=== PATIENT | female | born 1955 | race Caucasian/White ===

== ENCOUNTER 2020-09-04 09:19 | Outpatient (REF) | payer OTHER, SELFPAY ==
[2020-09-04 10:59] LABS: Anion Gap 14 (12-20); Blood Urea Nitrogen 14 mg/dL (9-16); Calcium 9.3 mg/dL (8.4-10.2); Carbon Dioxide 27 mmol/L (22-29); Chloride 103 mmol/L (96-108); Estimated Glomerular Filt Rate > 60; Glucose Random 101 mg/dL (60-115); Potassium 4.7 mmol/l (3.3-5.1); Sodium 139 mmol/L (135-145)
[2020-09-04 11:20] LABS: TSH reflex Free T4 1.27 mIU/mL (0.32-4.0)
== END 2020-09-04 09:20 | disposition home or self-care (01) ==
LOC: HO.LAB 09:19
PROVIDERS: PCP Family Medicine; Visit Provider Nurse Practitioner Family
DX: I48.0 Paroxysmal atrial fibrillation (principal)
CPT/HCPCS: 80048; 84443

== ENCOUNTER 2020-09-04 09:40 | Outpatient (REF) | payer OTHER, SELFPAY | END 2020-09-04 09:41 | disposition home or self-care (01) | LOC: HO.LAB 09:40 | PROVIDERS: Visit Provider Internal Medicine | DX: Z20.828 Contact with and (suspected) exposure to other viral communicable diseases (principal) | CPT/HCPCS: 87635 ==

== ENCOUNTER 2020-09-30 10:56 | Outpatient (REF) | payer OTHER, SELFPAY ==
--- NOTE | 2020-09-30 | MM_ITS ---
EXAMINATION: MM SCREENING DIGITAL BREAST TOMOSYNTHESIS, BILATERAL CLINICAL INFORMATION: Screening. Asymptomatic. The lifetime risk of breast cancer based on the Tyrer-Cuzick Model is 14%. COMPARISON: Mammography: 09/25/2019, 05/16/2018 TECHNIQUE: Digital breast tomosynthesis is performed in both the craniocaudal and mediolateral oblique views along with computer-aided detection (CAD). Synthesized 2D images are generated from the tomosynthesis. FINDINGS: The breasts are heterogeneously dense, which may obscure small masses (ACR BI-RADS breast composition Category c). Parenchymal pattern is similar to prior exams. No significant mass or architectural abnormality or developing density. No abnormal calcifications. The axilla and skin contours are unremarkable. MM/MM tomosynthesis screening BI IMPRESSION: There are no significant changes from prior studies. ASSESSMENT: BI-RADS 1: Negative RECOMMENDATION: Routine annual mammography screening. This patient's information was entered into a reminder system with a target due date for their next mammogram.
== END 2020-09-30 10:57 | disposition home or self-care (01) ==
LOC: HO.MAMMO 10:56
PROVIDERS: PCP Family Medicine; Visit Provider Family Medicine
DX: Z12.31 Encounter for screening mammogram for malignant neoplasm of breast (principal)
CPT/HCPCS: 77063; 77067

== ENCOUNTER → 2020-10-22 08:26 | Outpatient (BNVA) | payer OTHER, SELFPAY | PROVIDERS: PCP Family Medicine; Visit Provider Internal Medicine Endocrinology, Diabetes & Metabolism | DX: Z76.89 Persons encountering health services in other specified circumstances (principal) ==

== ENCOUNTER 2020-11-05 13:50 | Outpatient (REF) | payer OTHER, SELFPAY | END 2020-11-05 13:51 | disposition home or self-care (01) | LOC: HO.LAB 13:50 | PROVIDERS: PCP Family Medicine; Visit Provider Internal Medicine | DX: Z20.828 Contact with and (suspected) exposure to other viral communicable diseases (principal) | CPT/HCPCS: C9803; U0003 ==

== ENCOUNTER → 2020-12-01 09:36 | Outpatient (BNVA) | payer OTHER, SELFPAY | PROVIDERS: PCP Family Medicine; Visit Provider Internal Medicine | DX: I48.0 Paroxysmal atrial fibrillation (principal); R07.2 Precordial pain; R05 Cough | CPT/HCPCS: 93005; 99212 ==

== ENCOUNTER → 2020-12-31 08:31 | Outpatient (REF) | payer OTHER, SELFPAY ==
--- NOTE | ~2020-12-31 | NM_ITS ---
Lexiscan Myocardial perfusion study Indication: Chest pain, atrial fibrillation, assess for coronary disease and ischemia Technique: The patient was brought in for a Lexiscan perfusion study on 12/31/2020 and was injected 0.4 mg of Lexiscan intravenously. Within a minute of this injection 25 mCi of sestamibi was given intravenously. Images were obtained using the SPECT gamma camera interlaced with the gating device. Images were obtained in supine position. Resting perfusion study was performed on 01/01/2021. Patient was administered 25 mCi of sestamibi intravenously at rest. Images were then obtained in supine position. Total DLP 74mGy-cm. Images were processed with the software and compared side to side in short axis, horizontal long axis and vertical long axis views. Findings: Raw acquisition was reviewed. The stress perfusion study showed no significant perfusion abnormality. Both uncorrected as well as CT attenuation corrected images were reviewed. The gated study shows normal LV systolic function with calculated LVEF of 71%. LV cavity is normal in size. The gated study shows normal wall thickening and contraction of segments. Resting study shows no significant perfusion abnormality. Gating at rest reveals normal wall motion with ejection fraction at 64%. The findings are consistent with no reversible or fixed perfusion abnormality. NM/NM cardiolite stress test Impression: 1. Myocardial perfusion imaging study shows normal myocardial perfusion. No evidence of any ischemia or infarction. 2. Gated LVEF is 71% during stress and 64% during rest. 3. Transient ischemic dilatation not present. EKG component of the test reported separately.
--- NOTE | 2020-12-31 08:37 | CA_ITS ---
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 Normal LV systolic function 2. Severely dilated left atrium 3. Mild mitral regurgitation 4. Normal RV systolic pressure 5. No pericardial effusion Findings Left Ventricle Normal left ventricular size, thickness, and systolic function. The visually estimated ejection fraction is between 60-65%. Diastolic function is indeterminate on the basis of available data. Normal left ventricular filling pressures. E/E prime ratio is <8, consistent with normal filling pressures. Right Ventricle Mildly increased right ventricular cavity size. There is normal right ventricular systolic function. Atria The left atrium is severely dilated. Interatrial shunt cannot be excluded. The right atrium is mildly dilated. Aortic Valve The aortic valve structure and function is likely normal. There is no aortic valve stenosis. There is no aortic valve regurgitation. Mitral Valve There is mild anterior and posterior mitral leaflet thickening. There is mild mitral valve regurgitation. There is no mitral valve stenosis. Pulmonic Valve The pulmonic valve was not well visualized. Tricuspid Valve Likely normal tricuspid valve structure and function. There is mild tricuspid valve regurgitation. The right ventricular systolic pressure is normal. The right ventricular systolic pressure is 28 mmHg. There is no evidence of pulmonary hypertension. Great Vessels All visible segments of the aorta are normal in size. The pulmonary artery was not well visualized. Venous The inferior vena cava is mildly dilated and collapses greater than 50% with inspiration. Pericardium/Pleural There is no evidence of pericardial effusion. Prior Study Comparison Changes noted compared to prior study dated: 01/22/2020. Patient noted to be in atrial fibrillation on this study. RV systolic Pressuremeasured on this study within normal limits. Measurements 2D Linear Measurements IVSd: 1.07 0.6-0.9/0.6-1.0 cm LVIDd: 4.17 3.9-5.3/4.2-5.9 cm LVIDd Index: 2.41 2.4-3.2/2.2-3.1 cm/m2 LVIDs: 3.10 2.0-3.6 cm LVPWd: 1.10 0.7-1.1 cm Ao Root: 3.10 2.1-3.5 cm LA Diam: 5.00 2.7-3.8/3.0-4.0 cm LAIDs Index: 2.89 1.5-2.3 cm/m2 LV Mass: 189.62 67-162/88-224 g LV Mass Index: 109.61 43-95/49-115 g/m2 LVOT Diam: 2.00 3.0+(-)1.3 cm 2D Systolic Function EF 4C: 66.40 >55% EF 2C: 61.70 >55% EF BiP: 62.60 >55% Mitral Valve MV Pk E: 0.98 MV Decel Time: 187.00 E'Lateral: 16.10 E'Medial: 9.48 E/E' Med: 10.30 E/E' Lat: 6.10 PHT: 55.00 MVA PHT: 4.00 Decel [place]: 5.22 Aortic Valve AoV Pk Misbah: 1.35 AoV Mn Misbah: 0.93 AoV VTI: 0.32 AoV Pk Grad: 7.00 Aov Mn Grad: 4.00 FANNY Cont.VTI: 1.78 LVOT LVOT Pk Misbah: 0.92 LVOT Mn [place]: 0.62 LVOT VTI: 0.18 LVOT Pk Grad: 3.00 LVOT Mn Grad: 2.00 LVOT Diam: 2.00 LVOT Area: 3.14 Diastolic Function MV Pk E: 0.98 E'Medial: 9.48 E/E' Med: 10.30 E' Laterial: 16.10 E/E' Lat: 6.10 Tricuspid Valve TR Pk Misbah: 2.50 TR Pk Grad: 25.00 RA Press: 3.00 RVSP: 28.00 Great Vessels Aorta Ao Root-2D: 3.10 2.0-3.7 cm Ao Asc: 3.30 2.1-3.4 cm Pulmonary Valve PV Pk Misbah: 0.96 Peak PV Grad: 4.00 Updated in Other Vendor System with Status of Final Nirav Herring MD electronically signed on 01/01/2021 11:14:38 AM with status of Final
--- NOTE | 2020-12-31 09:30 | CA_ITS ---
Acquisition Time: 2020-12-31 10:31:07 Total Exercise Time: 00:02:00 Test Indications: Chest Pain Medications: ELIQUIS DILTIAZEM LEVOTHYROXINE METOPROLOL Protocol: LEXISCAN Max HR: 126 BPM 80% of Pred: 156 BPM Max BP: 130/090 mmHG Max Work Load: 1.0 METS Pharmacological stress test with Lexiscan injection, while sitting and kicking her legs, without anginal symptoms, with isolated PVC, with normotensive response to injection, with nondiagnostic EKG for ischemia. In recovery she had afib RVR and was treated with Aminophylline 75mg IVP to reverse Lexsican with improvement in heart rate. Nuclear images pending. Test reviewed with Dr Herring. Referred By: Manoj Henderson Overread By: CARLOS REDDY
== END ==
LOC: HO.CARD 08:31
PROVIDERS: Visit Provider Internal Medicine
DX: R07.2 Precordial pain (principal); I48.0 Paroxysmal atrial fibrillation
CPT/HCPCS: 78452; 93016; 93017; 93018; 93306; A9500; J0280; J2785

== ENCOUNTER → 2021-01-14 09:01 | Outpatient (BNVA) | payer OTHER, SELFPAY | PROVIDERS: PCP Family Medicine; Visit Provider Internal Medicine | DX: R07.2 Precordial pain (principal); I48.0 Paroxysmal atrial fibrillation; Z79.899 Other long term (current) drug therapy; Z87.891 Personal history of nicotine dependence | CPT/HCPCS: 99212 ==

== ENCOUNTER → 2021-01-23 09:46 | Outpatient (REF) | payer OTHER, SELFPAY ==
--- NOTE | 2021-01-23 10:35 | ECG_ITS ---
Hook-up date: 2021-01-23 10:00:00 Duration: 47:59:00 Test Indications: PAF Medications: 296799 QRS complexes 1561 Ventricular ectopics which represent 1 % of total QRS comp. * Supraventricular ectopics which represent % of total QRS comp. * Paced QRS complexs which represent % of total QRS comp. VENTRICULAR ECTOPY 1502 Isolated 6 Bigeminal Cycles 28 Couplets 1 Runs 3 Beats in Runs 3 Beats LONGEST at 180 BPM at 09:34:57 2021-01-24 3 Beats FASTEST at 180 BPM at 09:34:57 2021-01-24 SUPRAVENTRICULAR ECTOPY * Isolated * Couplets * Runs * Beats in Runs * Beats LONGEST at * BPM at :: -- * Beats FASTEST at * BPM at :: -- HEART RATES 58 MIN at 06:56:39 2021-01-24 98 AVG 169 MAX at 08:35:19 2021-01-24 LONGEST RR 1.5680 secs at 19:22:48 2021-01-23 S-T LEVELS Channel 1 - 128 mm at 10:00:00 2021-01-23 - 128 mm at 10:00:00 2021-01-23 Channel 2 - 128 mm at 10:00:00 2021-01-23 - 128 mm at 10:00:00 2021-01-23 Channel 3 - 128 mm at 02:91:91 -- - 128 mm at 02:91:91 Basic rhythm Atrial fibrillation No long pause or profound bradycardia Frequent Atrial fibrillation with rapid ventricular response , 41% of time HR > 100 bpm Frequent Premature ventricular complexes No diary submitted Referred By: Manoj Henderson Overread By: JOANNE GARCIA MD
== END ==
LOC: HO.CARD 09:46
PROVIDERS: PCP Family Medicine; Visit Provider Internal Medicine
DX: I48.0 Paroxysmal atrial fibrillation (principal)
CPT/HCPCS: 93226

== ENCOUNTER → 2021-02-04 09:07 | Outpatient (BNVA) | payer OTHER, SELFPAY | PROVIDERS: PCP Family Medicine; Visit Provider Internal Medicine | DX: I48.91 Unspecified atrial fibrillation (principal); I48.0 Paroxysmal atrial fibrillation; R07.2 Precordial pain | CPT/HCPCS: 99212 ==

== ENCOUNTER 2021-02-19 06:33 | Day surgery (SDC) | payer OTHER, SELFPAY ==
[2021-02-16 08:37] VITALS: BMI 27.8
--- NOTE | 2021-02-18 12:06 | P.CONAN_ITS ---
Documented by User: Fang Garcia 02/18/21 12:13 HPI - Anesthesia Eval Consult details Narrative: 65yo F for Cardioversion [facility] Active Problems Active Problems: All Active Problems (Updated 02/04/21 @ 09:20 by Manoj Henderson MD) Atrial fibrillation with rapid ventricular response (Acute) Cough (Acute) PAF (paroxysmal atrial fibrillation) (Acute) Precordial chest pain (Acute) Graves disease (Acute) Hypothyroidism (Acute) Paroxysmal A-fib (Acute) Past Medical History Medical History (Updated 02/19/21 @ 07:50 by Sridevi Blackwood) Graves disease Hypothyroidism PAF (paroxysmal atrial fibrillation) Paroxysmal A-fib Precordial chest pain Family History Family History Father CVD (cardiovascular disease) Diabetes Mother HTN (hypertension) Surgical History Surgical History (Updated 02/19/21 @ 07:38 by Sridevi Blackwood) History of surgery on arm Hx of appendectomy Social History Social History Smoking Status: Former smoker Packs Per Day: 0.24 Cigarettes Per Day: 4.8 Smoked in Last 30 Days: No Smoking Quit Date: 18 years ago Second Hand Smoke Exposure: No Use of substances other than those prescribed or required for medical reasons: Yes Substance Use Frequency: Occasionally Advance Directives: No Advance Directives Information Provided: Yes Meds Allergies Allergy/AdvReac Type Severity Reaction Status Date / Time Penicillins Allergy Severe Anaphylaxis Verified 02/04/21 09:08 Exam Exam Date and Time: February 18, 2021 1206 Height,Weight and Vital Signs: Height 5 ft 3 in Weight 71.3 kg Narrative Narrative: Echo 12/2020 Conclusions: - 1. Normal LV systolic function 2. Severely dilated left atrium 3. Mild mitral regurgitation 4. Normal RV systolic pressure 5. No pericardial effusion Stress 12/2020 NM cardiolite stress test Impression: 1. Myocardial perfusion imaging study shows normal myocardial perfusion. No evidence of any ischemia or infarction. 2. Gated LVEF is 71% during stress and 64% during rest. 3. Transient ischemic dilatation not present. Nondiagnostic EKG for ischemia. In recovery she had afib RVR and was treated with Aminophylline 75mg IVP to reverse Lexsican with improvement in heart rate. 2 day Holter Basic rhythm Atrial fibrillation No long pause or profound bradycardia Frequent Atrial fibrillation with rapid ventricular response , 41% of time HR > 100 bpm Frequent Premature ventricular complexes Assessment and Plan Assessment Anesthesia Assessment: Chart Reviewed Documented by User: Sridevi Blackwood 02/19/21 08:22 [facility] Past Medical History Medical History (Updated 02/19/21 @ 07:50 by Sridevi Blackwood) Graves disease Hypothyroidism PAF (paroxysmal atrial fibrillation) Paroxysmal A-fib Precordial chest pain Family History Family History Father CVD (cardiovascular disease) Diabetes Mother HTN (hypertension) Family history of problems with anesthesia: No Surgical History Surgical History (Updated 02/19/21 @ 07:38 by Sridevi Blackwood) History of surgery on arm Hx of appendectomy History of Problems with Anesthesia: No Social History Social History Smoking Status: Former smoker Packs Per Day: 0.24 Cigarettes Per Day: 4.8 Smoked in Last 30 Days: No Smoking Quit Date: 18 years ago Second Hand Smoke Exposure: No Use of substances other than those prescribed or required for medical reasons: Yes Substance Use Frequency: Occasionally Advance Directives: No Advance Directives Information Provided: Yes Meds Allergies Allergy/AdvReac Type Severity Reaction Status Date / Time Penicillins Allergy Severe Anaphylaxis Verified 02/04/21 09:08 Exam Height,Weight and Vital Signs: Vital Signs Temp Pulse Resp BP Pulse Ox 97.1 F 89 20 103/68 98 02/19/21 07:07 02/19/21 07:07 02/19/21 07:07 02/19/21 07:07 02/19/21 07:07 Airway Mallampati Class: II TM Dist: >3cm Neck ROM: Full Loose/Missing/Broken Teeth: Yes Heart: Irreguarly irregular Lungs: CTAB Assessment and Plan Assessment Anesthesia Assessment: Anesthesia Plan Discussed and Chart Reviewed Final Anesthetic Review NPO: Yes ASA Class: III Final Preanesthetic Review: No Changes in Pt Med Stat, Meds/Allgs Chart Reviewed, Consent Obtained/Reviewed and Anes Risks/Benef Reviewed Patient Risk: Intermediate Procedure Risk: Intermediate Assessment/Block/Sedation in SS: Assess/Block/Sedation-SS Anesthetic Plan Anesthetic Plan: GA Disposition: Standard PACU
[2021-02-19] VITALS (7 sets, daily range): BP systolic 103–122; BP diastolic 46–87; PULSE 58–89; RESP 12–20; TEMP 36.2; O2SAT 96–99; BMI 27.6
--- NOTE | 2021-02-19 | ECG_ITS ---
Test Reason : S/P CARDIOVERSION Blood Pressure : / mmHG Vent. Rate : 061 BPM Atrial Rate : 061 BPM P-R Int : 148 ms QRS Dur : 082 ms QT Int : 452 ms P-R-T Axes : 039 050 255 degrees QTc Int : 455 ms Normal sinus rhythm with sinus arrhythmia Nonspecific ST and T wave abnormality Abnormal ECG No previous ECGs available Referred By: Rylan Duran Electronically Signed By:RYLAN DURAN
[2021-02-19] MEDS: Lactated Ringers 1,000 ML 50 ML IV (07:21)
--- NOTE | 2021-02-19 08:01 | MHC.SHP ---
Pre-Procedural Eval Section B Chief Complaint: A-fib Allergies: Allergies Allergy/AdvReac Type Severity Reaction Status Date / Time Penicillins Allergy Severe Anaphylaxis Verified 02/04/21 09:08 Plan I have reviewed the history and physical and performed a pertinent physical examination on my patient. No changes have occurred unless specified.
[2021-02-19] MEDS: Flecainide Acetate 50 MG TABLET 100 MG PO (08:24)
--- NOTE | 2021-02-19 11:49 | HO.CARDIVERS ---
Cardioversion Procedure Note Cardioversion Date of Procedure: 02/19/2021 Ordering Provider: Dr. Henderson Performing Provider: Dr. Henderson Indication for Procedure: Atrial fibrillation with rapid rate Pre-Op Diagnosis: Atrial fibrillation Post-Op Diagnosis: Sinus rhythm Performed with Transesophageal Echo: No History: Symptomatic atrial fibrillation for cardioversion. Consent: Informed consent obtained. Procedure: After informed consent was obtained, patient was taken to the PACU. The patient was then positioned appropriately. The cardioversion pads were placed in anteroposterior position. Once under anesthesia, 120 joules of synchronized shock was administered. The rhythm converted from atrial fibrillation to sinus rhythm. Patient remained in sinus rhythm after the end of procedure. Complications: None Impression: Successful cardioversion from atrial fibrillation to sinus rhythm Recommendations: Start flecainide 100 mg b.i.d.. Stop metoprolol. Continue diltiazem. Continue anticoagulation. We will arrange followup.
== END 2021-02-19 09:14 | disposition home or self-care (01) ==
PROVIDERS: PCP Family Medicine; Visit Provider Internal Medicine
PROC: 5A2204Z Restoration of Cardiac Rhythm, Single (ICD-10-PCS; principal; 2021-02-19 08:00)
DX: I48.0 Paroxysmal atrial fibrillation (principal); Z79.01 Long term (current) use of anticoagulants; E05.00 Thyrotoxicosis with diffuse goiter without thyrotoxic crisis or storm; Z79.899 Other long term (current) drug therapy; Z88.0 Allergy status to penicillin; Z87.891 Personal history of nicotine dependence
CPT/HCPCS: 92960; 93005

== ENCOUNTER → 2021-04-01 12:57 | Outpatient (REF) | payer OTHER, SELFPAY ==
--- NOTE | 2021-04-01 13:10 | ECG_ITS ---
Hook-up date: 2021-04-01 13:18:00 Duration: 24:54:00 Test Indications: PAF Medications: [id number] QRS complexes 38 Ventricular ectopics which represent <1 % of total QRS comp. * Supraventricular ectopics which represent % of total QRS comp. * Paced QRS complexs which represent % of total QRS comp. VENTRICULAR ECTOPY 35 Isolated 0 Bigeminal Cycles 0 Couplets 1 Runs 3 Beats in Runs 3 Beats LONGEST at 144 BPM at 11:19:19 2021-04-02 3 Beats FASTEST at 144 BPM at 11:19:19 2021-04-02 SUPRAVENTRICULAR ECTOPY * Isolated * Couplets * Runs * Beats in Runs * Beats LONGEST at * BPM at :: -- * Beats FASTEST at * BPM at :: -- HEART RATES 52 MIN at 21:33:03 2021-04-01 93 AVG 167 MAX at 15:31:31 2021-04-01 LONGEST RR 1.9200 secs at 21:32:58 2021-04-01 S-T LEVELS Channel 1 - 128 mm at 13:18:00 2021-04-01 - 128 mm at 13:18:00 2021-04-01 Channel 2 - 128 mm at 13:18:00 2021-04-01 - 128 mm at 13:18:00 2021-04-01 Channel 3 - 128 mm at 03:23:71 -- - 128 mm at 03:23:71 Underlying rhythm is atrial fibrilation; some areas could be flutter; Average ventricular rate 93/min; range 52-167/min; About 49% of the time, ventricular rate >100/min; Rare PVCs; No events in patient diary. Referred By: Rylan Duran Overread By: RYLAN DURAN
== END ==
LOC: HO.CARD 12:57
PROVIDERS: Visit Provider Internal Medicine
DX: I48.0 Paroxysmal atrial fibrillation (principal)
CPT/HCPCS: 93225; 93226

== ENCOUNTER → 2021-05-07 09:42 | Outpatient (BNVA) | payer MEDICAID, SELFPAY | PROVIDERS: PCP Family Medicine; Visit Provider Internal Medicine | DX: I48.0 Paroxysmal atrial fibrillation (principal); Z51.81 Encounter for therapeutic drug level monitoring; Z79.899 Other long term (current) drug therapy | CPT/HCPCS: 93005; 99212 ==

== ENCOUNTER 2021-05-15 12:34 | Day surgery (SDC) | payer MEDICAID, SELFPAY ==
--- NOTE | 2021-05-14 08:27 | P.CONAN_ITS ---
Documented by User: Fang Radha 05/14/21 08:29 HPI - Anesthesia Eval Consult details Narrative: 65yo F for Cardioversion Eliquis Last cardioversion 02/19/21 with TIVA PMFSH Active Problems Active Problems: All Active Problems (Updated 05/07/21 @ 10:23 by Manoj Henderson MD) Encounter for monitoring anti-arrhythmic therapy (Acute) Atrial fibrillation with rapid ventricular response (Acute) Cough (Acute) PAF (paroxysmal atrial fibrillation) (Acute) Precordial chest pain (Acute) Graves disease (Acute) Hypothyroidism (Acute) Paroxysmal A-fib (Acute) Past Medical History Medical History (Updated 05/15/21 @ 14:01 by Sridevi Blackwood) Graves disease History of cardioversion Hypothyroidism PAF (paroxysmal atrial fibrillation) Paroxysmal A-fib Precordial chest pain Family History Family History Father CVD (cardiovascular disease) Diabetes Mother HTN (hypertension) Family history of problems with anesthesia: No Surgical History Surgical History History of surgery on arm Hx of appendectomy History of Problems with Anesthesia: No Social History Social History (Updated 05/07/21 @ 10:04 by KARIS Carroll) Patient Tobacco Use Status: Former Tobacco user Quit Date: 2002 Tobacco use type: Cigarette Cigarette Packs Per Day: 0.24 Cigarettes Per Day: 4.8 Years Smoked: 30 Second Hand Smoke Exposure: No Use of substances other than those prescribed or required for medical reasons: Yes Substance Use Frequency: Occasionally Are you DNR?: No Advance Directives: No Advance Directives Information Provided: No Meds Allergies Allergy/AdvReac Type Severity Reaction Status Date / Time Penicillins Allergy Severe Anaphylaxis Verified 05/15/21 12:45 Exam Exam Date and Time: May 14, 2021 0827 Narrative Narrative: EKG 05/07/21 atrial flutter with variable block at 89/Min with T inversions in inferior and anterolateral leads Echo 12/2020 Conclusions: - 1. Normal LV systolic function 2. Severely dilated left atrium 3. Mild mitral regurgitation 4. Normal RV systolic pressure 5. No pericardial effusion Stress 12/2020 NM cardiolite stress test Impression: 1. Myocardial perfusion imaging study shows normal myocardial perfusion. No evidence of any ischemia or infarction. 2. Gated LVEF is 71% during stress and 64% during rest. 3. Transient ischemic dilatation not present. Nondiagnostic EKG for ischemia. In recovery she had afib RVR and was treated with Aminophylline 75mg IVP to reverse Lexsican with improvement in heart rate. 2 day Holter Basic rhythm Atrial fibrillation No long pause or profound bradycardia Frequent Atrial fibrillation with rapid ventricular response , 41% of time HR > 100 bpm Frequent Premature ventricular complexes Assessment and Plan Assessment Anesthesia Assessment: Chart Reviewed Documented by User: Sridevi Blackwood 05/15/21 14:01 [facility] Past Medical History Medical History (Updated 05/15/21 @ 14:01 by Sridevi Blackwood) Graves disease History of cardioversion Hypothyroidism PAF (paroxysmal atrial fibrillation) Paroxysmal A-fib Precordial chest pain Family History Family History Father CVD (cardiovascular disease) Diabetes Mother HTN (hypertension) Surgical History Surgical History History of surgery on arm Hx of appendectomy Social History Social History (Updated 05/07/21 @ 10:04 by KARIS Carroll) Patient Tobacco Use Status: Former Tobacco user Quit Date: 2002 Tobacco use type: Cigarette Cigarette Packs Per Day: 0.24 Cigarettes Per Day: 4.8 Years Smoked: 30 Second Hand Smoke Exposure: No Use of substances other than those prescribed or required for medical reasons: Yes Substance Use Frequency: Occasionally Are you DNR?: No Advance Directives: No Advance Directives Information Provided: No Meds Allergies Allergy/AdvReac Type Severity Reaction Status Date / Time Penicillins Allergy Severe Anaphylaxis Verified 05/15/21 12:45 Exam Height,Weight and Vital Signs: Vital Signs Temp Pulse Resp BP Pulse Ox 05/15/21 12:53 97.4 F 77 16 144/93 H 97 Airway Mallampati Class: II TM Dist: >3cm Neck ROM: Full Loose/Missing/Broken Teeth: Yes Heart: Irregularly irregular Lungs: CTAB Assessment and Plan Assessment Anesthesia Assessment: Anesthesia Plan Discussed and Chart Reviewed Final Anesthetic Review NPO: Yes ASA Class: III Final Preanesthetic Review: No Changes in Pt Med Stat, Meds/Allgs Chart Reviewed, Consent Obtained/Reviewed and Anes Risks/Benef Reviewed Patient Risk: Intermediate Procedure Risk: Intermediate Assessment/Block/Sedation in SS: Assess/Block/Sedation-SS Anesthetic Plan Anesthetic Plan: GA Disposition: Standard PACU
--- NOTE | 2021-05-15 | ECG_ITS ---
Test Reason : POST CARDIOVERSION Blood Pressure : / mmHG Vent. Rate : 071 BPM Atrial Rate : 071 BPM P-R Int : 184 ms QRS Dur : 092 ms QT Int : 416 ms P-R-T Axes : 043 059 -43 degrees QTc Int : 452 ms Normal sinus rhythm T wave abnormality, consider anterolateral ischemia Abnormal ECG When compared with ECG of 19-FEB-2021 08:31, No significant change was found Referred By: Rylan Duran Electronically Signed By:RYLAN DURAN
[2021-05-15 12:50] VITALS: BMI 26.5
[2021-05-15 12:53] VITALS: BP 144/93; PULSE 77; RESP 16; TEMP 36.3; O2SAT 97
--- NOTE | 2021-05-15 13:01 | PC.NURSE ---
One gold wedding band removed by patient and placed in labeled blue bin. Bin kept with the rest of patient belongings in bag
[2021-05-15] MEDS: Lactated Ringers 1,000 ML 50 ML IVCONT (13:13)
--- NOTE | 2021-05-15 13:41 | MHC.SHP ---
Pre-Procedural Eval Section A Date of Service: 05/15/21 Section B Chief Complaint: a-fib Allergies: Allergies Allergy/AdvReac Type Severity Reaction Status Date / Time Penicillins Allergy Severe Anaphylaxis Verified 05/15/21 12:45 Plan I have reviewed the history and physical and performed a pertinent physical examination on my patient. No changes have occurred unless specified.
[2021-05-15 13:52] VITALS: BP 128/79; PULSE 70; RESP 16; TEMP 36.5; O2SAT 97
[2021-05-15 13:57] VITALS: BP 118/61; PULSE 73; RESP 16; O2SAT 96
[2021-05-15 14:02] VITALS: BP 118/73; PULSE 68; RESP 18; O2SAT 98
--- NOTE | 2021-05-15 14:06 | P.PNCAR_ITS ---
Cardioversion Procedure Note Cardioversion Date of Procedure: 05/15/2021 Ordering Provider: Dr. Henderson Performing Provider: Dr. Henderson Indication for Procedure: Atrial fibrillation Pre-Op Diagnosis: Atrial fibrillation Post-Op Diagnosis: Sinus rhythm Performed with Transesophageal Echo: No History: Symptomatic atrial fibrillation for cardioversion. Consent: Informed consent obtained. Procedure: After informed consent was obtained, patient was taken to the PACU. The patient was then positioned appropriately. The cardioversion pads were placed in anteroposterior position. Once under anesthesia, 120 joules of synchronized shock was administered. The rhythm converted from atrial fibrilla tion to sinus rhythm. Patient remained in sinus rhythm after the end of procedure. Complications: None Impression: Successful cardioversion from atrial fibrillation to sinus rhythm. Recommendations: Continue flecainide. Referred for ablation.
[2021-05-15 14:07] VITALS: BP 125/87; PULSE 71; RESP 18; O2SAT 97
[2021-05-15 14:29] VITALS: TEMP 36.6
== END 2021-05-15 14:50 | disposition home or self-care (01) ==
PROVIDERS: PCP Family Medicine; Visit Provider Internal Medicine
PROC: 5A2204Z Restoration of Cardiac Rhythm, Single (ICD-10-PCS; principal; 2021-05-15 14:00)
DX: I48.0 Paroxysmal atrial fibrillation (principal); Z79.01 Long term (current) use of anticoagulants; E05.00 Thyrotoxicosis with diffuse goiter without thyrotoxic crisis or storm; Z79.02 Long term (current) use of antithrombotics/antiplatelets; Z79.899 Other long term (current) drug therapy; Z87.891 Personal history of nicotine dependence
CPT/HCPCS: 92960; 93005

== ENCOUNTER → 2021-07-06 14:39 | Outpatient (BNVA) | payer MEDICAID, SELFPAY | PROVIDERS: PCP Family Medicine; Referring Provider Family Medicine; Visit Provider Internal Medicine | DX: I48.0 Paroxysmal atrial fibrillation (principal); Z51.81 Encounter for therapeutic drug level monitoring; Z79.899 Other long term (current) drug therapy | CPT/HCPCS: 93005; 99212 ==

== ENCOUNTER → 2021-07-20 15:52 | Outpatient (REF) | payer MEDICARE, MEDICAID, SELFPAY | LOC: HO.SL 15:52 | PROVIDERS: Visit Provider Internal Medicine | DX: G47.33 Obstructive sleep apnea (adult) (pediatric) (principal); I48.0 Paroxysmal atrial fibrillation | CPT/HCPCS: 95806 ==

== ENCOUNTER 2021-10-06 12:45 | Outpatient (REF) | payer MEDICARE, SELFPAY ==
[2021-10-06 14:45] LABS: Anion Gap 13 (12-20); Blood Urea Nitrogen 14 mg/dL (9-16); Calcium 10.3 mg/dL (8.4-10.2); Carbon Dioxide 26 mmol/L (22-29); Chloride 103 mmol/L (96-108); Estimated Glomerular Filt Rate > 60; Glucose Random 100 mg/dL (60-115); Potassium 4.7 mmol/L (3.3-5.1); Sodium 137 mmol/L (135-145)
[2021-10-06 15:11] LABS: Free T4 (Free Thyroxine) 1.18 ng/dL (0.71-1.85); Thyroid Stimulating Hormone 0.74 uIU/mL (0.32-4.0)
[2021-10-06 16:02] LABS: Digoxin < 0.3 ng/mL (0.8-2.0)
== END 2021-10-06 12:46 | disposition home or self-care (01) ==
LOC: HO.LAB 12:45
PROVIDERS: Internal Medicine Endocrinology, Diabetes & Metabolism; Absent Provider Internal Medicine; PCP Family Medicine; Referring Provider Family Medicine; Visit Provider Internal Medicine
DX: G47.33 Obstructive sleep apnea (adult) (pediatric) (principal); E05.00 Thyrotoxicosis with diffuse goiter without thyrotoxic crisis or storm; E89.0 Postprocedural hypothyroidism; I48.0 Paroxysmal atrial fibrillation; Z79.899 Other long term (current) drug therapy
CPT/HCPCS: 36415; 80048; 80162; 84439; 84443; 99212

== ENCOUNTER 2021-10-14 09:56 | Outpatient (REF) | payer MEDICARE, MEDICAID, SELFPAY ==
--- NOTE | ~2021-10-14 | MM_ITS ---
EXAMINATION: MM SCREENING DIGITAL BREAST TOMOSYNTHESIS, BILATERAL CLINICAL INFORMATION: Screening. Asymptomatic. The lifetime risk of breast cancer based on the Tyrer-Cuzick Model is 11.4%. COMPARISON: Mammography: September 30, 2020 and studies dating back to April 25, 2017 TECHNIQUE: Digital breast tomosynthesis is performed in both the craniocaudal and mediolateral oblique views along with computer-aided detection (CAD). Synthesized 2D images are generated from the tomosynthesis. FINDINGS: The breasts are heterogeneously dense, which may obscure small masses (ACR BI-RADS breast composition Category c). There are no significant masses, abnormal calcifications, or other abnormalities. MM/MM tomosynthesis screening BI IMPRESSION: There are no significant changes from prior study. ASSESSMENT: BI-RADS 1: Negative RECOMMENDATION: Routine annual mammography screening. This patient's information was entered into a reminder system with a target due date for their next mammogram.
== END 2021-10-14 09:57 | disposition home or self-care (01) ==
LOC: HO.MAMMO 09:56
PROVIDERS: Visit Provider Family Medicine
DX: Z12.31 Encounter for screening mammogram for malignant neoplasm of breast (principal)
CPT/HCPCS: 77063; 77067

== ENCOUNTER → 2021-11-16 10:33 | Outpatient (BNVA) | payer MEDICARE, MEDICAID, SELFPAY | PROVIDERS: PCP Family Medicine; Visit Provider Internal Medicine | DX: G47.33 Obstructive sleep apnea (adult) (pediatric) (principal) | CPT/HCPCS: 99212 ==

== ENCOUNTER → 2021-12-01 09:35 | Outpatient (BNVA) | payer MEDICARE, MEDICAID, SELFPAY | PROVIDERS: PCP Family Medicine; Referring Provider Family Medicine; Visit Provider Internal Medicine | DX: I48.0 Paroxysmal atrial fibrillation (principal); R94.31 Abnormal electrocardiogram [ECG] [EKG]; G47.33 Obstructive sleep apnea (adult) (pediatric); Z51.81 Encounter for therapeutic drug level monitoring; Z79.899 Other long term (current) drug therapy | CPT/HCPCS: 93005; 99212 ==

== ENCOUNTER → 2022-01-04 12:43 | Outpatient (REF) | payer MEDICARE, MEDICAID, SELFPAY ==
--- NOTE | 2022-01-04 12:49 | HM_ITS ---
Conclusion: 1. Patient was monitor for total period of one day and 17 hours 2. Baseline rhythm is normal sinus rhythm with average heart rate of 75 beats per minute 3. No sustained atrial fibrillation noted 4. No significant pauses or bradycardia noted 5. Twenty-seven short runs of supraventricular arrhythmias, longest lasting 14 beats. 6. Total of 2623 PVCs accounting for 1.4% of total beats accounting for occasional PVCs 7. Total of 5622 PACs accounting for 3.01% of total beats accounting for frequent PACs 8. No patient reported events MTDD
== END ==
LOC: HO.CARD 12:43
PROVIDERS: PCP Family Medicine; Visit Provider Internal Medicine
DX: I48.0 Paroxysmal atrial fibrillation (principal)
CPT/HCPCS: 93242

== ENCOUNTER 2022-01-27 10:37 | Outpatient (REF) | payer MEDICARE, MEDICAID, SELFPAY ==
[2022-01-27 12:03] LABS: Albumin Level 4.1 g/dL (3.5-5.0); Calcium 10.2 mg/dL (8.4-10.2)
[2022-01-28 16:26] LABS: Calcium (PTHI) 9.8 mg/dL (8.6-10.4); PTHI 73 pg/mL (16-77)
== END 2022-01-27 10:38 | disposition home or self-care (01) ==
LOC: HO.LAB 10:37
PROVIDERS: PCP Family Medicine; Visit Provider Internal Medicine Endocrinology, Diabetes & Metabolism
DX: E89.0 Postprocedural hypothyroidism (principal)
CPT/HCPCS: 36415; 82040; 82310; 83970

== ENCOUNTER → 2022-02-02 08:53 | Outpatient (BNVA) | payer MEDICARE, MEDICAID, SELFPAY | PROVIDERS: PCP Family Medicine; Visit Provider Internal Medicine Endocrinology, Diabetes & Metabolism | DX: E89.0 Postprocedural hypothyroidism (principal) | CPT/HCPCS: 99212 ==

== ENCOUNTER → 2022-03-09 08:13 | Outpatient (BNVA) | payer MEDICARE, MEDICAID, SELFPAY | PROVIDERS: PCP Family Medicine; Referring Provider Family Medicine; Visit Provider Internal Medicine | DX: I48.0 Paroxysmal atrial fibrillation (principal); G47.33 Obstructive sleep apnea (adult) (pediatric); R94.31 Abnormal electrocardiogram [ECG] [EKG] | CPT/HCPCS: 99212 ==

== ENCOUNTER → 2022-04-19 08:56 | Outpatient (REF) | payer MEDICARE, MEDICAID, SELFPAY ==
--- NOTE | ~2022-04-19 | NM_ITS ---
Lexiscan Myocardial perfusion study Indication: Atrial fibrillation, chest pain, assess for coronary disease and ischemia Technique: The patient was brought in for a Lexiscan perfusion study on 04/19/2022 and was injected 0.4 mg of Lexiscan intravenously. Within a minute of this injection 25 mCi of sestamibi was given intravenously. Images were obtained using the SPECT gamma camera interlaced with the gating device. Images were obtained in supine position. Resting perfusion study was performed on 04/22/2022. Patient was administered 25 mCi of sestamibi intravenously at rest. Images were then obtained in supine position. Total DLP 90mGy-cm. Images were processed with the software and compared side to side in short axis, horizontal long axis and vertical long axis views. Findings: Raw acquisition was reviewed. The stress perfusion study showed minimally reduced tracer uptake in the distal part of anterior wall. No significant changes with CT attenuation correction. The gated study shows normal LV systolic function with calculated LVEF of 61%. LV cavity is normal in size. The gated study shows normal wall thickening and contraction of segments. Resting study shows no significant perfusion abnormality. Gating at rest reveals normal wall motion with normal EF on visual evaluation. However, gated LVEF calculated at 34% which seems erroneous. The findings are consistent with mild reversible distal anterior defect with normal contractility. Likely artifactual. NV/NV cardiolite stress test Impression: 1. Myocardial perfusion imaging study shows no definitive evidence of any ischemia or infarction. 2. Gated LVEF is 61% during stress; visually appears normal during rest. 3. Transient ischemic dilatation not present. EKG component of the test reported separately.
--- NOTE | 2022-04-19 09:01 | CA_ITS ---
Acquisition Time: 2022-04-19 09:17:56 Total Exercise Time: 00:03:43 Test Indications: Abnormal ECG Medications: ELIQUIS DILTIAZEM SYNTHROID Protocol: STORM Max HR: 127 BPM 81% of Pred: 155 BPM Max BP: 174/086 mmHG Max Work Load: 5.4 METS Exercise stress test with exercise 3 min 43 sec of Storm protocol, with report of dizziness, with frequent isolated PACs and short atrial runs, isolated PVCs and few ventricular cuplets, with brief slowing of heart rate at peak exercise which coincided with her dizziness ( artifact present, unable to assess for P waves) with normotensive response to exercise, with nondiagnostic EKG for ischemia due to baseline abnormality and suboptimal heart rate. She was assisted to recliner and allowed to rest for over 10 min. EKGs reviewed with Dr Henderson. Testing changed to pharmacological stress test with Lexiscan injection, while sitting and kicking, with isolated PACs and PVCs, with normotensive response to injection, with nondiagnostic EKG for ischemia. In recovery she was treated with Aminophylline 75mg IVP to reverse Lexiscan. Nuclear images pending. Test reviewed with Dr Henderson. Referred By: Manoj Henderson Overread By: CARLOS REDDY
== END ==
LOC: HO.CARD 08:56
PROVIDERS: PCP Family Medicine; Visit Provider Internal Medicine
DX: R07.2 Precordial pain (principal)
CPT/HCPCS: 78452; 93017; A9500; J0280; J2785

== ENCOUNTER → 2022-07-13 13:24 | Outpatient (BNVA) | payer MEDICARE, MEDICAID, SELFPAY | PROVIDERS: PCP Family Medicine; Referring Provider Family Medicine; Visit Provider Internal Medicine | DX: I48.0 Paroxysmal atrial fibrillation (principal); G47.33 Obstructive sleep apnea (adult) (pediatric); R94.31 Abnormal electrocardiogram [ECG] [EKG]; Z79.01 Long term (current) use of anticoagulants; Z79.899 Other long term (current) drug therapy | CPT/HCPCS: 99212 ==

== ENCOUNTER 2022-10-18 09:41 | Outpatient (REF) | payer MEDICARE, MEDICAID, OTHER, SELFPAY ==
--- NOTE | ~2022-10-18 | MM_ITS ---
EXAMINATION: MM SCREENING DIGITAL BREAST TOMOSYNTHESIS, BILATERAL CLINICAL INFORMATION: Screening. Asymptomatic. The lifetime risk of breast cancer based on the Tyrer-Cuzick Model is 12%. COMPARISON: Mammography: 10/14/2021, 09/30/2020, 09/25/2019 TECHNIQUE: Digital breast tomosynthesis is performed in both the craniocaudal and mediolateral oblique views along with computer-aided detection (CAD). Synthesized 2D images are generated from the tomosynthesis. FINDINGS: The breasts are heterogeneously dense, which may obscure small masses (ACR BI-RADS breast composition Category c). There are no significant masses, abnormal calcifications, or other abnormalities. Parenchymal pattern is similar to prior studies. There is no developing density or architectural abnormality. The axilla and skin contours are unremarkable. No significant changes. MM/MM tomosynthesis screening BI IMPRESSION: No mammographic evidence of malignancy. ASSESSMENT: BI-RADS 1: Negative RECOMMENDATION: Routine annual mammography screening. This patient's information was entered into a reminder system with a target due date for their next mammogram.
== END 2022-10-18 09:42 | disposition home or self-care (01) ==
LOC: HO.MAMMO 09:41
PROVIDERS: PCP Family Medicine; Visit Provider Family Medicine
DX: Z12.31 Encounter for screening mammogram for malignant neoplasm of breast (principal)
CPT/HCPCS: 77063; 77067

== ENCOUNTER → 2023-01-19 14:56 | Outpatient (BNVA) | payer MEDICARE, MEDICAID, OTHER, SELFPAY | PROVIDERS: PCP Family Medicine; Referring Provider Family Medicine; Visit Provider Internal Medicine | DX: I48.0 Paroxysmal atrial fibrillation (principal); R94.31 Abnormal electrocardiogram [ECG] [EKG]; G47.33 Obstructive sleep apnea (adult) (pediatric) | CPT/HCPCS: 93005; 99212 ==

== ENCOUNTER 2023-02-08 09:11 | Outpatient (REF) | payer MEDICARE, MEDICAID, SELFPAY ==
[2023-02-08 10:53] LABS: Free T4 (Free Thyroxine) 1.21 ng/dL (0.71-1.85)
[2023-02-08 11:10] LABS: Thyroid Stimulating Hormone 0.08 uIU/mL (0.32-4.0)
== END 2023-02-08 09:12 | disposition home or self-care (01) ==
LOC: HO.LAB 09:11
PROVIDERS: PCP Family Medicine; Visit Provider Internal Medicine Endocrinology, Diabetes & Metabolism
DX: E89.0 Postprocedural hypothyroidism (principal)
CPT/HCPCS: 36415; 84439; 84443

== ENCOUNTER → 2023-02-10 09:20 | Outpatient (BNVA) | payer MEDICARE, MEDICAID, SELFPAY | PROVIDERS: PCP Family Medicine; Visit Provider Internal Medicine Endocrinology, Diabetes & Metabolism | DX: E89.0 Postprocedural hypothyroidism (principal) | CPT/HCPCS: 99212 ==

== ENCOUNTER 2023-06-08 15:26 | Outpatient (REF) | payer MEDICARE, MEDICAID, SELFPAY ==
[2023-06-08 18:12] LABS: Free T4 (Free Thyroxine) 0.93 ng/dL (0.71-1.85); Thyroid Stimulating Hormone 2.42 uIU/mL (0.32-4.0)
== END 2023-06-08 15:27 | disposition home or self-care (01) ==
LOC: HO.LAB 15:26
PROVIDERS: PCP Family Medicine; Visit Provider Internal Medicine Endocrinology, Diabetes & Metabolism
DX: E89.0 Postprocedural hypothyroidism (principal)
CPT/HCPCS: 36415; 84439; 84443

== ENCOUNTER 2023-06-09 15:27 | Outpatient (REF) | payer MEDICARE, OTHER, SELFPAY ==
--- NOTE | ~2023-06-09 | XR_ITS ---
EXAMINATION: XR SACRUM AND COCCYX CLINICAL INFORMATION: Abnormal findings on diagnostic imaging of other parts of musculoskeletal system. 3-month follow up incidental lucency at sacrum. COMPARISON: None available. TECHNIQUE: 3 views of the sacrum and coccyx. FINDINGS: There is marked grade 1 anterolisthesis of L5 upon S1. A large amount of stool overlies the sacrum. No definite bony destructive lesions are seen. Marked degenerative changes are seen at the pubic symphysis. XR/XR sacrum coccyx min 2V IMPRESSION: No definite bony destructive lesions are seen. There is marked grade 1 anterolisthesis of L5 upon S1. Marked degenerative changes at the pubic symphysis.
== END 2023-06-09 15:28 | disposition home or self-care (01) ==
LOC: HO.XRAY 15:27
PROVIDERS: PCP Family Medicine; Visit Provider Family Medicine
DX: R93.7 Abnormal findings on diagnostic imaging of other parts of musculoskeletal system (principal); E89.0 Postprocedural hypothyroidism; Z79.899 Other long term (current) drug therapy
CPT/HCPCS: 72220; 99212

== ENCOUNTER 2023-06-09 16:05 | Outpatient (AMB) | payer MEDICARE, MEDICAID, SELFPAY ==
--- NOTE | 2023-06-09 16:12 | MHC.OFFVIS ---
Intake Vital Signs 06/09/23 16:13 Height 5 ft 3 in Weight 146 lb 6.191 oz BMI 25.9 BP 112/82 Pulse 95 Intake Visit Reasons: f/u postablative hypothyroidism Intake Note: Patient present for postablative hypothyroidism follow up. Rn Document Improvement Required: No Accompanied by: Self / Same As Patient Allergies Penicillins Allergy (Severe, Verified 06/09/23 16:16) Anaphylaxis Medication List - Last Reconciled 06/09/23 by Hemanth Dean MD apixaban (Eliquis) 5 mg PO BID diltiazem HCl 180 mg PO DAILY 90 days Synthroid (levothyroxine) 88 mcg PO DAILY NS HPI HPI Comments History of Present Illness Details 68 yo female today for fup visit, , for post ablative hypothyroidism . She is feeling well. Has no complaints. She has past medical history of Graves' disease who underwent radioactive iodine ablation and has resulted in hypothyroidism She is currently on synthroid 88 mg. 100% compliance with LT 4, good method of administration. Feeling some fatigue since decrease the Synthroid 88 Denies cold or heat intolerance, weight loss or gain, Denies diarrhea, constipation, insomnia, fatigue, dry skin, Occasional dysphagia, Denies dyspnea, dysphonia, tremors, palpitations, irritability, anxiety. Family History: Aunt had goiter. Laboratory Tests 01/01/20 09/04/20 Unknown 09:32 TSH 1.27 Free T4 0.94 TSH 3rd Generation 1.02 [facility] Medical History (Updated 04/26/23 @ 15:53 by Preston Jean) Graves disease History of cardioversion Hypothyroidism PAF (paroxysmal atrial fibrillation) Paroxysmal A-fib Precordial chest pain Surgical History History of surgery on arm Hx of appendectomy S/P ablation of atrial fibrillation Family History Father CVD (cardiovascular disease) Diabetes Mother HTN (hypertension) Social History Alcohol intake: current Alcohol intake frequency: 0-2 drinks per day Alcohol type: wine Patient Tobacco Use Status: Former Tobacco user Quit Date: 2002 Years Smoked: 30 +/- e-Cigarette/Vaping Use: Never Used Second Hand Smoke Exposure: No Substance Use Type: Marijuana service: No 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al status: employed Physical Exam Vital Signs: Last Vital Signs Pulse 95 06/09/23 16:13 BP 112/82 06/09/23 16:13 BMI result Body Mass Index 25.9 Const Other: Thyroid gland is decreased size weighs about 5 g .No thyroid nodules palpated. Reflexes 2+ DTR. Assessment & Plan Assessment & Plan (1) Hypothyroidism: Code(s): E03.9 - Hypothyroidism, unspecified Qualifiers: Hypothyroidism type: postablative Qualified Code(s): E89.0 - Postprocedural hypothyroidism Plan: This is a 68-year-old white female with a history of post-ablated hypothyroidism be treated with 88 mcg Synthroid. She appears to be clinically and biochemically euthyroid Plan is to alternate the 88 mcg with 100 mcg of Synthroid. Recheck TSH and free T4 in 6 weeks time and adjust Synthroid accordingly Orders: Orders Free T4 (Free Thyroxine) 6 Weeks E03.9 - Hypothyroidism, unspecified Thyroid Stimulating Hormone 6 Weeks E03.9 - Hypothyroidism, unspecified Coding Level of Care Code Est Pt Level 3 (73291) Diagnoses Hypothyroidism E89.0 Hypothyroidism type: postablative
[2023-06-09 16:13] VITALS: BP 112/82; PULSE 95; BMI 25.9
== END 2023-06-09 16:43 | disposition home or self-care (01) ==
PROVIDERS: PCP Family Medicine; Referring Provider Family Medicine; Visit Provider Internal Medicine Endocrinology, Diabetes & Metabolism
DX: E89.0 Postprocedural hypothyroidism (principal)
CPT/HCPCS: 99213

== ENCOUNTER 2023-08-26 16:12 | Outpatient (AMB) | payer MEDICARE, SELFPAY ==
[2023-08-26 16:14] VITALS: BP 110/74; PULSE 83; RESP 13; TEMP 36.4; O2SAT 98; BMI 25.7
--- NOTE | 2023-08-26 16:14 | MHC.PC.OV ---
Vital Signs 08/26/23 16:14 Height 5 ft 3 in Weight 145 lb 6 oz BMI 25.7 BP 110/74 Blood Pressure Location Lt brachial Position Sitting Respiration 13 Pulse 83 Pulse Source Pulse Oximeter Temp 97.6 F Temp Source Temporal Artery Scan Pulse Oximetry (%) 98 Oxygen Delivery Method Room Air Intake Visit Reasons: shoulder pain Intake Note: Patient states that she was reaching for something on the mantel and sliped on a rock and landed sraight on her left shoulder in 04/2023 and today is the first time she is getting seen for it. Reference Investigator Required: No Accompanied by: Self / Same As Patient Allergies Penicillins Allergy (Severe, Verified 08/26/23 16:35) Anaphylaxis Medication List - Last Reconciled 08/26/23 by Francois Vieira CNP apixaban (Eliquis) 5 mg PO BID diltiazem HCl 180 mg PO DAILY 90 days Synthroid (levothyroxine) 88 mcg PO DAILY NS Tobacco use date assessed: 04/26/23 Fall risk assessment: 1 Fall in past year Last assessed Fall Risk: 08/26/23 Dental Screening Dental Screen Date: 08/26/23 Did you have a dental visit in the last 12 months?: Yes Did you have a dental problem in the last 6 months where you did not have access to dental care?: No Was dental information given to patient?: Patient has dentist HPI HPI Comments History of Present Illness Details 68-year-old female presents with complaints of intermittent to her left upper arm. She states that the pain started in April 2023, after she slipped and fell on the hard wood floor of her home, landing on her left shoulder. She notes that the pain has lessened but has not completely subsided. Worse with certain movements and range of motion. She has been taking tylenol as needed. [facility] Medical History History of cardioversion PAF (paroxysmal atrial fibrillation) Precordial chest pain Graves disease Hypothyroidism Paroxysmal A-fib Surgical History S/P ablation of atrial fibrillation History of surgery on arm Hx of appendectomy Family History Father CVD (cardiovascular disease) Diabetes Mother HTN (hypertension) Social History Housing: House Alcohol intake: current Alcohol intake frequency: 0-2 drinks per day Alcohol type: wine Patient Tobacco Use Status: Former Tobacco user Quit Date: 2002 Years Smoked: 30 +/- e-Cigarette/Vaping Use: Never Used Second Hand Smoke Exposure: No Substance Use Type: Marijuana service: No 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al status: employed 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) Cognitive needs: No Hearing needs: No Vision needs: No Review of Systems Const Details: Const Denies chills, Denies fatigue, Denies fever(s), Denies headache(s) and Denies weakness ENT Denies dizziness and Denies headache(s) Card Denies chest pain, Denies lightheadedness, Denies dyspnea and Denies other (Palpitations) Resp Denies cough, Denies dyspnea, Denies wheezing and Denies other ( shortness of breath) GI Denies abdominal pain, Denies melena, Denies hematochezia, Denies change in bowel habits, Denies dyspepsia and Denies nausea Denies hematuria and Denies dysuria Musc Denies abnormal gait, Denies myalgias, Denies arthralgias, Denies numbness and Denies tingling Skin/Breast Denies rash, Denies unusual bruising and Denies wounds Neuro Denies abnormal gait, Denies dizziness, Denies headache(s), Denies memory loss, Denies numbness, Denies Sensory deficit (Neuro), Denies tingling and Denies weakness Psych Denies anxiety, Denies depression, Denies memory loss Endo Denies cold intolerance, Denies fatigue, Denies heat intolerance, Denies polydipsia and Denies polyuria Aller/Immun Denies wheezing Physical exam (Primary Care) Vital Signs: Last Vital Signs Temp 97.6 F 08/26/23 16:14 Pulse 83 08/26/23 16:14 Resp 13 08/26/23 16:14 BP 110/74 08/26/23 16:14 Pulse Ox 98 08/26/23 16:14 Oxygen Delivery Method Room Air 08/26/23 16:14 BMI result Body Mass Index 25.7 Tobacco/Smoking Status: Tobacco use Status Tobacco use date assessed 04/26/23 08/26/23 16:22 Patient Tobacco Use Status Former Tobacco user 08/26/23 16:22 Tobacco use type 01/07/22 15:46 e-Cigarette/Vaping Use Never Used 08/26/23 16:22 Const Other: General: no acute distress and well developed Nutritional Appearance: well nourished Orientation/consciousness: patient oriented x3 [facility] Head: Yes normocephalic and Yes atraumatic Eyes General: appearance normal, both eyes and all related structures Pupils: Equal, round and reactive pupils present EOM: EOMs intact bilaterally Resp Effort & Inspection: normal respiratory effort Auscultation: clear to auscultation bilaterally Cardio Rate: regular rate Rhythm: regular rhythm Heart sounds: S1 normal heart sound present, S2 normal heart sound present, no gallops, no murmurs and no rubs GI Palpation (GI): No Abdominal aortic bruit present, Soft to palpation, nontender, No hepatosplenomegaly present and No Rebound tenderness present Auscultation: normal bowel sounds General: Yes no CVA tenderness Back/Spine/Pelvis Back: no CVA tenderness Cervical Spine: cervical ROM normal and No Cervical spine tenderness Thoracic/Lumbar Spine: thoraco-lumbar ROM normal, No pain with thoraco-lumbar ROM, No thoracic spinal tenderness and No lumbar spinal tenderness Extrem General: Yes normal to inspection, No edema and No calf tenderness Tenderness to palpation of the lateral left upper arm proximal to the shoulder. No erythema, edema, or overt trauma Skin General: warm and dry. Normal skin color. Normal skin turgor Neuro General: patient oriented x3, gait normal and no focal neuro deficit Cranial nerves: Yes Equal, round and reactive pupils present Cognition (Neuro): normal cognition Gait exam (Neuro): Normal gait present Sensory Exam: No Sensory deficit (Neuro) Psych Appearance: grossly normal Affect: normal affect Attitude: cooperative Thought process: Normal thought process present Assessment and Plan Assessment & Plan (1) Left upper arm pain: Code(s): M79.622 - Pain in left upper arm Plan: Present with intermittent left upper arm pain for the past 4 months Tenderness to palpation of the lateral left upper arm proximal to the shoulder. No erythema, edema, or overt trauma Normal range of motion Likely tendinitis Prednisone ordered. Take as prescribed Warm/cool compresses encouraged Follow-up with worsening or new symptoms Verbalized understanding and agreed with treatment plan. Medications: New prednisone 20 mg PO DAILY 5 tabs 0RF 5 days Coding Level of Care Code Est Pt Level 3 (91301) Diagnoses Left upper arm pain M79.622
== END 2023-08-26 16:46 | disposition home or self-care (01) ==
PROVIDERS: PCP Family Medicine; Visit Provider Nurse Practitioner Family
DX: M79.622 Pain in left upper arm (principal)
CPT/HCPCS: 99213

== ENCOUNTER 2023-09-12 09:15 | Outpatient (REF) | payer MEDICARE, SELFPAY ==
[2023-09-12 11:38] LABS: Free T4 (Free Thyroxine) 0.89 ng/dL (0.71-1.85); Thyroid Stimulating Hormone 2.15 uIU/mL (0.32-4.0)
== END 2023-09-12 09:16 | disposition home or self-care (01) ==
LOC: HO.LAB 09:15
PROVIDERS: Absent Provider Internal Medicine Endocrinology, Diabetes & Metabolism; PCP Family Medicine; Visit Provider Nurse Practitioner Family
DX: E03.9 Hypothyroidism, unspecified (principal); I48.0 Paroxysmal atrial fibrillation; R94.31 Abnormal electrocardiogram [ECG] [EKG]; Z98.890 Other specified postprocedural states; Z86.79 Personal history of other diseases of the circulatory system
CPT/HCPCS: 36415; 84439; 84443; 99212

== ENCOUNTER 2023-09-12 09:15 | Outpatient (AMB) | payer MEDICARE, SELFPAY ==
[2023-09-12 09:30] VITALS: BP 114/84; PULSE 85; BMI 26.0
--- NOTE | 2023-09-12 09:30 | A.OFFVIS_ITS ---
Intake Vital Signs 09/12/23 09:30 Height 5 ft 3 in Weight 146 lb 13.246 oz BMI 26.0 BP 114/84 Blood Pressure Location Lt brachial Position Sitting Pulse 85 Pulse Source Pulse Oximeter Intake Visit Reasons: follow up Allergies Penicillins Allergy (Severe, Verified 09/12/23 09:33) Anaphylaxis Medication List - Last Reconciled 09/12/23 by Nerissa Williamson [employer] apixaban (Eliquis) 5 mg PO BID diltiazem HCl 180 mg PO DAILY 90 days levothyroxine (Synthroid) 100 mcg PO DAILY Synthroid (levothyroxine) 88 mcg PO DAILY NS HPI follow up HPI Details Bridget is a 68-year-old female with past medical history of obstructive sleep apnea, thyroid disease, paroxysmal then persistent atrial fibrillation, failed cardioversion and ultimately undergoing successful atrial fibrillation ablation who presents for follow-up. Today she reports that over the summer her thyroid medication was adjusted by her knowledge management advisor. Since then she has had intermittent episodes brief lightheadedness following her morning Eliquis and diltiazem. 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 Now that the season is over she has not notice this symptom in the last few weeks. She has good activity tolerance and walks 1.5 miles daily. She is active with house and [employer] work. No chest discomfort at rest or with activity. No shortness of breath, heart palpitations, presyncope, syncope, PND, orthopnea or edema. Takes meds as directed. No bleeding issues reported. [facility] Medical History History of cardioversion PAF (paroxysmal atrial fibrillation) Precordial chest pain Graves disease Hypothyroidism Paroxysmal A-fib Surgical History (Updated 09/12/23 @ 11:28 by Nerissa Williamson, JESSICA-C) S/P ablation of atrial fibrillation History of surgery on arm Hx of appendectomy Family History Father CVD (cardiovascular disease) Diabetes Mother HTN (hypertension) Social History Housing: House Alcohol intake: current Alcohol intake frequency: 0-2 drinks per day Alcohol type: wine Patient Tobacco Use Status: Former Tobacco user Quit Date: 2002 Years Smoked: 30 +/- e-Cigarette/Vaping Use: Never Used Second Hand Smoke Exposure: No Substance Use Type: Marijuana service: No 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al status: employed 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) Cognitive needs: No Hearing needs: No Vision needs: No Review of Systems Const All systems reviewed & are unremarkable except as noted in HPI and below ENT Reports dizziness Card Denies chest pain, Denies chest pain at rest, Denies chest pain with activity, Denies rapid heart rate, Denies pedal edema, Denies edema, Denies leg edema, Denies lightheadedness, Denies palpitations, Denies dyspnea, Denies dyspnea on exertion and Denies orthopnea Resp Denies cough, Denies dyspnea and Denies dyspnea on exertion GI Denies hematochezia and Denies change in stool character Musc Denies abnormal gait, Denies limited range of motion, Denies muscle cramps, Denies muscle weakness, Denies numbness, Denies radiating pain into limb, Denies stiffness and Denies tingling Neuro Denies abnormal gait, Reports dizziness, Denies numbness and Denies tingling Endo Denies palpitations Physical Exam Vital Signs: Last Vital Signs Pulse 85 09/12/23 09:30 BP 114/84 09/12/23 09:30 BMI result Body Mass Index 26.0 Const General: cooperative, healthy appearing, comfortable and no acute distress Orientation/consciousness: patient oriented x3 Neck Neck: Yes normal visual inspection Resp Effort & Inspection: normal respiratory effort Auscultation: clear to auscultation bilaterally, no crackles, no rales, no rhonchi and no wheezes Cardio Jugular venous distension: no JVD Rate: regular rate Rhythm: regular rhythm Heart sounds: S1 normal heart sound present, S2 normal heart sound present, no murmurs and no rubs Neuro General: patient oriented x3 Extrem General: Yes normal to inspection Psych Appearance: grossly normal Mental Status: mental status grossly normal Speech and movement: Normal speech and movement present Assessment & Plan Assessment & Plan (1) PAF (paroxysmal atrial fibrillation): Code(s): I48.0 - Paroxysmal atrial fibrillation Plan: History of paroxysmal atrial fibrillation which then became persistent. She was on anti arrhythmics and failed cardioversion. She ultimately underwent a successful atrial fibrillation ablation on 10/27/2021. She has not had documented recurrent atrial fibrillation since that time. She denies any palpitations like AFib since that time. Her pulse is very regular on examination today with no concern for AFib. Will continue on current diltiazem dose. She is on Eliquis for anticoagulation. No bleeding issues reported. Will update CBC and CMP. Cardiology follow-up in 6 months, sooner if needed. (2) S/P ablation of atrial fibrillation: Comment: October 27, 2021 Code(s): Z98.890 - Other specified postprocedural states; Z86.79 - Personal history of other diseases of the circulatory system (3) FANY (obstructive sleep apnea): Code(s): G47.33 - Obstructive sleep apnea (adult) (pediatric) Plan: Mild obstructive sleep apnea. She is not interested in CPAP mask. (4) Hypothyroidism: Code(s): E03.9 - Hypothyroidism, unspecified Qualifiers: Hypothyroidism type: postablative Qualified Code(s): E89.0 - Postprocedural hypothyroidism Plan: Follows with Dr. Dean. Since the change in her thyroid medication last summer she has had episodes of intermittent brief lightheadedness. Last episode was a few weeks ago. She will have labs checked today as ordered by him. (5) Abnormal EKG: Code(s): R94.31 - Abnormal electrocardiogram [ECG] [EKG] Plan: Her EKG has inferior and anterior lateral T-wave inversions. Last EKG 01/19/2023. No significant change from prior EKGs. She has no anginal sounding symptoms. She has had 2 stress tests in the past and neither shows any significant perfusion abnormality. If she has report of any chest discomfort or new shortness of breath and plan to get a CTA of the coronary arteries. Signs and symptoms of angina reviewed with her. Orders: Orders Complete Blood Count Auto Diff Today I48.0 - Paroxysmal atrial fibrillation Comprehensive Met. Panel Today I48.0 - Paroxysmal atrial fibrillation Coding Level of Care Code Est Pt Level 4 (77202) Diagnoses PAF (paroxysmal atrial fibrillation) I48.0 S/P ablation of atrial fibrillation Z98.890; Z86.79 FANY (obstructive sleep apnea) G47.33 Postablative hypothyroidism E89.0 Hypothyroidism type: postablative Abnormal EKG R94.31 Time Spent (min) 28
== END 2023-09-12 09:55 | disposition home or self-care (01) ==
PROVIDERS: PCP Family Medicine; Visit Provider Nurse Practitioner Family
DX: I48.0 Paroxysmal atrial fibrillation (principal); Z98.890 Other specified postprocedural states; Z86.79 Personal history of other diseases of the circulatory system; G47.33 Obstructive sleep apnea (adult) (pediatric); E89.0 Postprocedural hypothyroidism; R94.31 Abnormal electrocardiogram [ECG] [EKG]
CPT/HCPCS: 99214

== ENCOUNTER 2023-09-13 12:39 | Outpatient (REF) | payer MEDICARE, SELFPAY ==
[2023-09-13 13:30] LABS: MANUAL DIFF FLAG NO
[2023-09-13 13:55] LABS: Basophils Percent Auto 0.3 % (0-2); Eosinophils Absolute Auto 0.2 X10*3/uL (0.0-0.4); Eosinophils Percent Auto 1.7 % (0-4); Hematocrit 40.9 % (37.0-47.0); Hemoglobin 13.7 g/dl (12.0-16.0); Imm Gran Abs Auto 0.06 X10*3/uL (0.00-0.03); Imm Gran Pct Auto 0.5 % (0.0-0.4); Lymphocytes Absolute Auto 1.9 X10*3/uL (1.2-4.9); Lymphocytes Percent Auto 15.4 % (20-40); Mean Corpuscular HGB Conc 33.5 g/dl (31.0-35.0); Mean Corpuscular Hemoglobin 32.4 pg (27.0-33.0); Mean Corpuscular Volume 96.7 fL (80.0-98.0); Mean Platelet Volume 9.8 fL (9.4-12.3); Monocytes Absolute Auto 0.6 X10*3/uL (0.1-1.2); Neutrophils Absolute Auto 9.6 x10*3/uL (2.0-8.3); Neutrophils Percent Auto 77.1 % (45-73); Platelet Count 288 X10*3/uL (160-400); Red Blood Count 4.23 X10*6/uL (4.20-5.50); Red Cell Distribution Width 13.1 % (11.0-16.0); White Blood Count 12.5 X10*3/uL (4.8-10.8)
[2023-09-13 14:22] LABS: Alanine Aminotransferase 16 U/L (0-31); Albumin Level 4.2 g/dL (3.5-5.0); Alkaline Phosphatase 90 U/L (39-117); Anion Gap 13 (12-20); Aspartate Amino Transferase 18 U/L (5-31); Bilirubin Total 0.6 mg/dL (0.0-1.0); Blood Urea Nitrogen 16 mg/dL (9-16); Carbon Dioxide 26 mmol/L (22-29); Chloride 106 mmol/L (96-108); Estimated Glomerular Filt Rate > 60; Glucose Random 93 mg/dL (60-115); Potassium 4.2 mmol/L (3.3-5.1); Sodium 141 mmol/L (135-145); Total Protein 7.1 g/dL (6.5-8.0)
== END 2023-09-13 12:40 | disposition home or self-care (01) ==
LOC: HO.LAB 12:39
PROVIDERS: PCP Family Medicine; Visit Provider Nurse Practitioner Family
DX: I48.0 Paroxysmal atrial fibrillation (principal)
CPT/HCPCS: 36415; 80053; 85025

== ENCOUNTER 2023-11-01 09:25 | Outpatient (REF) | payer MEDICARE, SELFPAY | END 2023-11-01 09:26 | disposition home or self-care (01) | LOC: HO.MAMMO 09:25 | PROVIDERS: PCP Family Medicine; Visit Provider Family Medicine | DX: Z12.31 Encounter for screening mammogram for malignant neoplasm of breast (principal) | CPT/HCPCS: 77063; 77067 ==

== ENCOUNTER → 2023-11-01 09:30 | Outpatient (BNV) | payer MEDICARE, SELFPAY | PROVIDERS: PCP Family Medicine; Visit Provider Radiology Diagnostic Radiology | DX: Z12.31 Encounter for screening mammogram for malignant neoplasm of breast (principal) | CPT/HCPCS: 77063; 77067 ==

== ENCOUNTER 2024-03-06 09:51 | Outpatient (REF) | payer MEDICARE, SELFPAY ==
[2024-03-06 11:31] LABS: Free T4 (Free Thyroxine) 0.96 ng/dL (0.71-1.85)
== END 2024-03-06 09:52 | disposition home or self-care (01) ==
LOC: HO.LAB 09:51
PROVIDERS: PCP Family Medicine; Visit Provider Internal Medicine Endocrinology, Diabetes & Metabolism
DX: E89.0 Postprocedural hypothyroidism (principal)
CPT/HCPCS: 36415; 84439; 84443

== ENCOUNTER 2024-03-13 08:55 | Outpatient (AMB) | payer MEDICARE, SELFPAY ==
--- NOTE | 2024-03-13 08:57 | A.OFFVIS_ITS ---
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 Required: No Allergies Penicillins Allergy (Severe, Verified 03/13/24 11:40) Anaphylaxis Medication List - Last Reconciled 03/13/24 by Nerissa Williamson NP-Lm apixaban (Eliquis) 5 mg PO BID diltiazem HCl CD 180 mg PO DAILY 90 days Synthroid (levothyroxine) 88 mcg PO .q0d NS Synthroid (levothyroxine) 100 mcg PO .qod NS HPI HPI 6 mth f/up: Details: Bridget is a 68-year-old female with past medical history of obstructive sleep apnea, thyroid disease, paroxysmal then persistent atrial fibrillation, failed cardioversion and ultimately undergoing successful atrial fibrillation ablation who presents for follow-up. Today she reports she has been doing well overall. Her only complaint is of forgetfulness. She is having some difficulty remembering names. She will [facility] discuss this with her PCP. No chest discomfort at rest or with activity. No heart palpitations, lightheadedness, presyncope, syncope, falls. No shortness of breath, PND, orthopnea or edema. Taking meds as directed. No bleeding issues reported. 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 [facility] Medical History History of cardioversion PAF (paroxysmal atrial fibrillation) Precordial chest pain Graves disease Hypothyroidism Paroxysmal A-fib Surgical History S/P ablation of atrial fibrillation History of surgery on arm Hx of appendectomy Family History Father CVD (cardiovascular disease) Diabetes Mother HTN (hypertension) Social History Housing: House Alcohol intake: current Alcohol intake frequency: 0-2 drinks per day Alcohol type: wine Patient Tobacco Use Status: Former Tobacco user Quit Date: 2002 Years Smoked: 30 +/- e-Cigarette/Vaping Use: Never Used Second Hand Smoke Exposure: No Substance Use Type: Marijuana service: No 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al status: employed 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) Cognitive needs: No Hearing needs: No Vision needs: No Review of Systems Const Details: forgetfulness All systems reviewed & are unremarkable except as noted in HPI and below ENT Denies dizziness Card Denies chest pain, Denies chest pain at rest, Denies chest pain with activity, Denies rapid heart rate, Denies pedal edema, Denies edema, Denies leg edema, Denies lightheadedness, Denies palpitations, Denies dyspnea, Denies dyspnea on exertion and Denies orthopnea Resp Denies cough, Denies dyspnea and Denies dyspnea on exertion GI Denies hematochezia and Denies change in stool character Musc Denies abnormal gait, Denies limited range of motion, Denies muscle cramps, Denies muscle weakness, Denies numbness, Denies radiating pain into limb, Denies stiffness and Denies tingling Neuro Denies abnormal gait, Denies dizziness, Denies numbness and Denies tingling Endo Denies palpitations Physical Exam Vital Signs: Last Vital Signs Pulse 89 03/13/24 08:58 BP 124/82 03/13/24 08:58 BMI result Body Mass Index 26.6 Const General: cooperative, healthy appearing, comfortable and no acute distress Orientation/consciousness: patient oriented x3 Neck Neck: Yes normal visual inspection and Yes no JVD Resp Effort & Inspection: normal respiratory effort Auscultation: clear to auscultation bilaterally, no crackles, no rales, no rhonchi and no wheezes Cardio Jugular venous distension: no JVD Rate: regular rate Rhythm: regular rhythm Heart sounds: S1 normal heart sound present, S2 normal heart sound present, no murmurs and no rubs Neuro General: patient oriented x3 Extrem General: Yes normal to inspection and No no pedal edema Psych Appearance: grossly normal Mental Status: mental status grossly normal Speech and movement: Normal speech and movement present Office Procedures EKG Details: Today, read by me, sinus rhythm, short OR interval, T-wave abnormality, same as prior EKG, rate 89, QTC 425 milliseconds [id number], Complete Assessment & Plan Assessment & Plan (1) PAF (paroxysmal atrial fibrillation): Code(s): I48.0 - Paroxysmal atrial fibrillation Category: Medical Plan: History of paroxysmal atrial fibrillation which then became persistent. She was on anti arrhythmics and failed cardioversion. She ultimately underwent a successful atrial fibrillation ablation on 10/27/2021. She has not had documented recurrent atrial fibrillation since that time. She denies any palpitations like AFib since that time. EKG done today showing sinus rhythm, T- wave inversions inferior and V3 through V6 which is unchanged from prior EKGs, rate 89. Blood pressure normal range at 124/70. Will continue on current diltiazem dose. She is on Eliquis for anticoagulation. No bleeding issues reported. Labs done 09/13/2023 showed creatinine 0.62, hematocrit 40.9. Labs done 03/06/2024 showed TSH 1.10. Cardiology follow-up in 1 year, sooner if needed. (2) S/P ablation of atrial fibrillation: Comment: October 27, 2021 Code(s): Z98.890 - Other specified postprocedural states; Z86.79 - Personal history of other diseases of the circulatory system Category: Surgical Plan: As above (3) FANY (obstructive sleep apnea): Code(s): G47.33 - Obstructive sleep apnea (adult) (pediatric) Category: Medical Plan: Mild obstructive sleep apnea. She is not interested in CPAP mask. (4) Hypothyroidism: Code(s): E03.9 - Hypothyroidism, unspecified Category: Medical Qualifiers: Hypothyroidism type: postablative Qualified Code(s): E89.0 - Postprocedural hypothyroidism Plan: Follows with Dr. Dean. (5) Abnormal EKG: Code(s): R94.31 - Abnormal electrocardiogram [ECG] [EKG] Category: Medical Plan: Her EKG has inferior and anterior lateral T-wave inversions. EKGs reviewed back to 2020 and unchanged. EKG today shows no significant changes. She has no anginal sounding symptoms. She has had 2 stress tests in the past , last was 04/19/2022, and neither shows any significant perfusion abnormality. If she has report of any chest discomfort or new shortness of breath and plan to get a CTA of the coronary arteries. Signs and symptoms of angina reviewed with her. Plan Time spent on chart review, documentation, interview and assessment Coding Level of Care Code Est Pt Level 4 (18717) Diagnoses PAF (paroxysmal atrial fibrillation) I48.0 S/P ablation of atrial fibrillation Z98.890; Z86.79 FANY (obstructive sleep apnea) G47.33 Postablative hypothyroidism E89.0 Hypothyroidism type: postablative Abnormal EKG R94.31 CPT Codes EKG - CPT: 13261-[id number], Complete ([id number]) Time Spent (min) 28
[2024-03-13 08:58] VITALS: BP 124/82; PULSE 89; BMI 26.6
== END 2024-03-13 09:23 | disposition home or self-care (01) ==
PROVIDERS: PCP Family Medicine; Visit Provider Nurse Practitioner Family
DX: I48.0 Paroxysmal atrial fibrillation (principal); Z98.890 Other specified postprocedural states; Z86.79 Personal history of other diseases of the circulatory system; G47.33 Obstructive sleep apnea (adult) (pediatric); E89.0 Postprocedural hypothyroidism; R94.31 Abnormal electrocardiogram [ECG] [EKG]
CPT/HCPCS: 93010; 99214

== ENCOUNTER → 2024-03-13 08:55 | Outpatient (BNVA) | payer MEDICARE, SELFPAY | PROVIDERS: PCP Family Medicine; Visit Provider Nurse Practitioner Family | DX: E89.0 Postprocedural hypothyroidism (principal); Z79.899 Other long term (current) drug therapy; I48.0 Paroxysmal atrial fibrillation; G47.33 Obstructive sleep apnea (adult) (pediatric); R94.31 Abnormal electrocardiogram [ECG] [EKG] | CPT/HCPCS: 93005; 99212 ==

== ENCOUNTER 2024-03-13 11:35 | Outpatient (AMB) | payer MEDICARE, SELFPAY ==
--- NOTE | 2024-03-13 11:35 | A.OFFVIS_ITS ---
Vital Signs 03/13/24 11:36 Height 5 ft 3 in Weight 149 lb 14.629 oz BMI 26.6 BP 124/70 Blood Pressure Location Lt brachial Position Sitting Pulse 79 Pulse Source Pulse Oximeter Intake Visit Reasons: f/u postablative hypothyroidism-lvm Intake Note: Patient present today for Postablative Hypothyroidism follow up visit. 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 She is feeling well. Has no complaints. She has past medical history of Graves' disease who underwent radioactive iodine ablation and has resulted in hypothyroidism She is currently on synthroid 88 mg. alt with 100 mcg 100% compliance with LT 4, good method of administration. Feeling some fatigue since decrease the Synthroid 88 Denies cold or heat intolerance, weight loss or gain, Denies diarrhea, constipation, insomnia, fatigue, dry skin, Occasional dysphagia, Denies dyspnea, dysphonia, tremors, palpitations, irritability, anxiety. Family History: Aunt had goiter. Laboratory Tests 01/01/20 09/04/20 Unknown 09:32 TSH 1.27 Free T4 0.94 TSH 3rd Generation 1.02 [facility] Medical History History of cardioversion PAF (paroxysmal atrial fibrillation) Precordial chest pain Graves disease Hypothyroidism Paroxysmal A-fib Surgical History S/P ablation of atrial fibrillation History of surgery on arm Hx of appendectomy Family History Father CVD (cardiovascular disease) Diabetes Mother HTN (hypertension) Social History Housing: House Alcohol intake: current Alcohol intake frequency: 0-2 drinks per day Alcohol type: wine Patient Tobacco Use Status: Former Tobacco user Quit Date: 2002 Years Smoked: 30 +/- e-Cigarette/Vaping Use: Never Used Second Hand Smoke Exposure: No Substance Use Type: Marijuana service: No 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al status: employed 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 Reflexes 2+ DTR. Assessment & Plan Assessment & Plan (1) Hypothyroidism: Code(s): E03.9 - Hypothyroidism, unspecified Category: Medical Qualifiers: Hypothyroidism type: postablative Qualified Code(s): E89.0 - Postprocedural hypothyroidism Plan: This is a 68-year-old white female with a history of post-ablated hypothyroidism be treated with 88 mcg Synthroid. She appears to be clinically and biochemically euthyroid Plan is to continue the current therapy Coding Level of Care Code Est Pt Level 3 (66327) Diagnoses Postablative hypothyroidism E89.0 Hypothyroidism type: postablative
[2024-03-13 11:36] VITALS: BP 124/70; PULSE 79; BMI 26.6
== END 2024-03-13 15:37 | disposition home or self-care (01) ==
PROVIDERS: PCP Family Medicine; Visit Provider Internal Medicine Endocrinology, Diabetes & Metabolism
DX: E89.0 Postprocedural hypothyroidism (principal)
CPT/HCPCS: 99213

== ENCOUNTER 2024-05-30 08:34 | Outpatient (AMB) | payer MEDICARE, SELFPAY ==
--- NOTE | 2024-05-30 08:46 | AM.OFFWIN_ITS ---
Intake Vital Signs 3 05/30/24 08:49 Height 5 ft 3 in Weight 146 lb BMI 25.9 BP 128/80 Blood Pressure Location Lt brachial Position Sitting Respiration 12 Pulse 75 Pulse Source Pulse Oximeter Temp 98.1 F Temp Source Oral Pulse Oximetry (%) 97 Oxygen Delivery Method Room Air Intake Visit Reasons: Neck Pain Intake Note: Neck pain. Fell last year and neck pain started acting up again. Patient Tobacco Use Status: Former Tobacco user Allergies Penicillins Allergy (Severe, Verified 05/30/24 09:24) Anaphylaxis Medication List - Last Reconciled 05/30/24 by Miriam Rouse, [employer]- apixaban (Eliquis) 5 mg PO BID diltiazem HCl CD 180 mg PO DAILY 90 days Synthroid (levothyroxine) 88 mcg PO .q0d NS Synthroid (levothyroxine) 100 mcg PO .qod NS Do you need a note to return to daycare/school/sports/work: No HPI HPI Comments 2 History of Present Illness0 Details Very pleasant 69-year-old female here today with complaints of left neck/upper back pain. She reports that about 1 year ago she fell backwards and injured her neck. She has not had any trauma to her neck since. Reports that she was treated with prednisone for the pain at that time with positive effect. 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 Started with left upper back pain yesterday. She did apply topical pain patches and limited the amount of physical work and lifting that she was doing which did help to alleviate the pain. When she rubs the muscles on the right upper back she feels like a popping or moving sensation. She denies any neuro deficits. Plan: Prednisone 50 mg p.o. daily. Zanaflex to be used sparingly Cont topical pain patches X-rays of the left shoulder and clavicle. Negative for acute findings; rather chronic OA changes. This note is constructed using voice recognition software. While every effort has been made to ensure accuracy in varnish cooker, still errors may have been included Sometimes, these errors may affect the content or meaning of the given sentence . Total time spent caring for the patient today was 32 minutes. This includes time spent before the visit reviewing the chart, time spent during the visit, and time spent after the visit on documentation [facility] Medical History History of cardioversion PAF (paroxysmal atrial fibrillation) Precordial chest pain Graves disease Hypothyroidism Paroxysmal A-fib Surgical History S/P ablation of atrial fibrillation History of surgery on arm Hx of appendectomy Family History Father CVD (cardiovascular disease) Diabetes Mother HTN (hypertension) Social History Housing: House Alcohol intake: current Alcohol intake frequency: 0-2 drinks per day Alcohol type: wine Patient Tobacco Use Status: Former Tobacco user Years Smoked: 30 +/- e-Cigarette/Vaping Use: Never Used Second Hand Smoke Exposure: No Substance Use Type: Marijuana service: No 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al status: employed 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 Full ROM left shoulder, neurovasc intact; when palpating this area, a knot is felt with some clicking but not crepitus below this area; overlying skin is intact. mild pain over clavicle proximal to shoulder insertion. no spinal tenderness 2. pain w palp over l anterior shoulder Results Reviewed Results Reviewed: [address] [address] XRay Report Signed Patient: Barbara Black MR#: [id number] : 1955 Acct:[id number] Age/Sex: 69 / F ADM Date: 05/30/24 Loc: [facility] Attending Dr: Miriam HUTSON Ordering Physician: Miriam Rouse Date of Service: 05/30/24 Procedure(s): XR clavicle LT Accession Number(s): [id number] cc: Miriam Rouse~ EXAMINATION: XR CLAVICLE, LEFT CLINICAL INFORMATION: Left clavicle pain COMPARISON: None available. TECHNIQUE: Two views of the left clavicle. FINDINGS: The clavicle is intact. The bones and soft tissues are normal. No fracture. Acromioclavicular joint alignment is anatomic with mild changes of osteoarthritis. XR/XR clavicle LT IMPRESSION: Normal left clavicle. Mild changes of osteoarthritis in the left acromioclavicular joint Dictated By: Asim Alonso MD Signed By: <Electronically signed by Asim Alonso MD in OV> 05/30/24 1249 DD/ 1137 TD/TT: Pharmacy Sales Representative: [place] [id number] XRay Report Signed Patient: Barbara Black MR#: [id number] : 1955 Acct:[id number] Age/Sex: 69 / F ADM Date: 05/30/24 Loc: [facility] Attending Dr: Miriam HUTSON Ordering Physician: Miriam Rouse Date of Service: 05/30/24 Procedure(s): XR shoulder LT min 2V Accession Number(s): [id number] cc: Miriam Rouse~ EXAMINATION: XR SHOULDER, LEFT CLINICAL INFORMATION: Pain in left shoulder COMPARISON: None available. TECHNIQUE: AP external rotation, Grashey, scapular Y, and axillary views of the left shoulder. FINDINGS: The bones and soft tissues are normal except of mild spurring at the greater tuberosity. No fracture. Glenohumeral joint is unremarkable and acromioclavicular joints revealed changes of mild osteoarthritis with normal joint space. No abnormal soft tissue calcifications. XR/XR shoulder LT min 2V IMPRESSION: Mild degenerative changes in the left acromioclavicular joint and spurring. The greater tuberosity Dictated By: Asim Alonso MD Signed By: <Electronically signed by Asim Alonso MD in OV> 05/30/24 1248 DD/ 1137 TD/TT: Pharmacy Sales Representative: Assessment & Plan Assessment & Plan (1) Left shoulder pain: Code(s): M25.512 - Pain in left shoulder Qualifiers: Chronicity: acute Qualified Code(s): M25.512 - Pain in left shoulder Plan: . (2) Upper back pain on left side: Code(s): M54.9 - Dorsalgia, unspecified Plan: . Orders: Orders 2 XR shoulder LT min 2V Today M25.512 - Pain in left shoulder, M54.9 - Dorsalgia, unspecified XR clavicle LT Today M25.512 - Pain in left shoulder, M54.9 - Dorsalgia, unspecified Medications: New 2 tizanidine (Zanaflex) 2 mg (1/2 x 4 mg) PO BID PRN 5 tabs 0RF muscle spasticity 5 days prednisone 50 mg PO DAILY 5 tabs 0RF 5 days Coding Level of Care Code Est Pt Level 4 (70847) Diagnoses Acute pain of left shoulder M25.512 Chronicity: acute Upper back pain on left side M54.9
[2024-05-30 08:49] VITALS: BP 128/80; PULSE 75; RESP 12; TEMP 36.7; O2SAT 97; BMI 25.9
== END 2024-05-30 09:32 | disposition home or self-care (01) ==
PROVIDERS: PCP Family Medicine; Visit Provider Nurse Practitioner Family
DX: M25.512 Pain in left shoulder (principal); M54.9 Dorsalgia, unspecified
CPT/HCPCS: 99214

== ENCOUNTER 2024-05-30 11:13 | Outpatient (REF) | payer MEDICARE, SELFPAY ==
--- NOTE | ~2024-05-30 | XR_ITS ---
EXAMINATION: XR SHOULDER, LEFT CLINICAL INFORMATION: Pain in left shoulder COMPARISON: None available. TECHNIQUE: AP external rotation, Grashey, scapular Y, and axillary views of the left shoulder. FINDINGS: The bones and soft tissues are normal except of mild spurring at the greater tuberosity. No fracture. Glenohumeral joint is unremarkable and acromioclavicular joints revealed changes of mild osteoarthritis with normal joint space. No abnormal soft tissue calcifications. XR/XR shoulder LT min 2V IMPRESSION: Mild degenerative changes in the left acromioclavicular joint and spurring. The greater tuberosity
--- NOTE | ~2024-05-30 | XR_ITS ---
EXAMINATION: XR CLAVICLE, LEFT CLINICAL INFORMATION: Left clavicle pain COMPARISON: None available. TECHNIQUE: Two views of the left clavicle. FINDINGS: The clavicle is intact. The bones and soft tissues are normal. No fracture. Acromioclavicular joint alignment is anatomic with mild changes of osteoarthritis. XR/XR clavicle LT IMPRESSION: Normal left clavicle. Mild changes of osteoarthritis in the left acromioclavicular joint
== END 2024-05-30 11:14 | disposition home or self-care (01) ==
LOC: HO.XRAY 11:13
PROVIDERS: PCP Nurse Practitioner Family; Visit Provider Nurse Practitioner Family
DX: M25.512 Pain in left shoulder (principal); M54.9 Dorsalgia, unspecified
CPT/HCPCS: 73000; 73030

== ENCOUNTER 2024-07-03 15:21 | Outpatient (AMB) | payer MEDICARE, SELFPAY ==
[2024-07-03 15:31] VITALS: BP 132/76; PULSE 100; BMI 25.9
--- NOTE | 2024-07-03 15:31 | MHC.OFFVIS ---
Vital Signs 07/03/24 15:31 Height 5 ft 3 in Weight 146 lb 2.664 oz BMI 25.9 BP 132/76 Blood Pressure Location Rt brachial Position Sitting Pulse 100 Pulse Source Pulse Oximeter Intake Visit Reasons: Hypothyroidism/LVM Intake Note: Patient present today for Hypothyroidism follow up. 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 She is feeling well. Has no complaints. She has past medical history of Graves' disease who underwent radioactive iodine ablation and has resulted in hypothyroidism She is currently on synthroid 88 mg. alt with 100 mcg 100% compliance with LT 4, good method of administration. Feeling some fatigue since decrease the Synthroid 88 Denies cold or heat intolerance, weight loss or gain, Denies diarrhea, constipation, insomnia, fatigue, dry skin, Occasional dysphagia, Denies dyspnea, dysphonia, tremors, palpitations, irritability, anxiety. Family History: Aunt had goiter. Laboratory Tests 01/01/20 09/04/20 Unknown 09:32 TSH 1.27 Free T4 0.94 TSH 3rd Generation 1.02 [facility] Medical History History of cardioversion PAF (paroxysmal atrial fibrillation) Precordial chest pain Graves disease Hypothyroidism Paroxysmal A-fib Surgical History S/P ablation of atrial fibrillation History of surgery on arm Hx of appendectomy Family History Father CVD (cardiovascular disease) Diabetes Mother HTN (hypertension) Social History Housing: House Alcohol intake: current Alcohol intake frequency: 0-2 drinks per day Alcohol type: wine Patient Tobacco Use Status: Former Tobacco user Years Smoked: 30 +/- e-Cigarette/Vaping Use: Never Used Second Hand Smoke Exposure: No Substance Use Type: Marijuana service: No 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al status: employed 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 Reflexes 2+ DTR. Assessment & Plan Assessment & Plan (1) Hypothyroidism: Code(s): E03.9 - Hypothyroidism, unspecified Category: Medical Qualifiers: Hypothyroidism type: postablative Qualified Code(s): E89.0 - Postprocedural hypothyroidism Plan: This is a 68-year-old white female with a history of post-ablated hypothyroidism be treated with 88 mcg alt with 100 ug Synthroid. She appears to be clinically euthyroid Plan is to check TSH and free T4 and adjust Synthroid if necessary Orders: Orders Free T4 (Free Thyroxine) 1 Year E89.0 - Postprocedural hypothyroidism Thyroid Stimulating Hormone 1 Year E89.0 - Postprocedural hypothyroidism Coding Level of Care Code Est Pt Level 3 (04770) Diagnoses Postablative hypothyroidism E89.0 Hypothyroidism type: postablative
== END 2024-07-03 15:57 | disposition home or self-care (01) ==
PROVIDERS: PCP Nurse Practitioner Family; Visit Provider Internal Medicine Endocrinology, Diabetes & Metabolism
DX: E89.0 Postprocedural hypothyroidism (principal)
CPT/HCPCS: 99213

== ENCOUNTER → 2024-07-03 15:21 | Outpatient (BNVA) | payer MEDICARE, SELFPAY | PROVIDERS: PCP Nurse Practitioner Family; Visit Provider Internal Medicine Endocrinology, Diabetes & Metabolism | DX: E89.0 Postprocedural hypothyroidism (principal) | CPT/HCPCS: 99212 ==

== ENCOUNTER 2024-08-31 12:18 | Outpatient (AMB) | payer MEDICARE, SELFPAY ==
--- NOTE | 2024-08-31 12:29 | A.OFFPC_ITS ---
Vital Signs 08/31/24 12:33 Height 5 ft 3 in Weight 146 lb 8 oz BMI 25.9 BP 132/76 Blood Pressure Location Lt brachial Position Sitting Respiration 14 Pulse 77 Pulse Source Pulse Oximeter Pulse Oximetry (%) 98 Oxygen Delivery Method Room Air Intake Visit Reasons: Inside knee swelling Intake Note: Patient complaining of swelling behind right knee x 2 weeks. Allergies Penicillins Allergy (Severe, Verified 08/31/24 12:32) Anaphylaxis Tobacco use date assessed: 08/31/24 Dental Screening Dental Screen Date: 08/26/23 HPI HPI Comments History of Present Illness Details 69-year-old female with AFib on Eliquis here today with complaints of right knee swelling that started 2 weeks ago. She reported that she noticed painless swelling occurring on the inside of her right knee. A short time later she developed a large vein on her right thigh. She is on Eliquis for AFib and was only taking once per day. About 1 week ago she started to take it twice per day after noticing the vein and the change in her knee. She then reports that the vein popped and she developed a bruise above her kneecap. Since that time the swelling on the inside aspect of her right knee has become worse. She denies any fever, chills, trauma to the joint, redness to the joint or warmth. Denies any chest pain, shortness of breath. Exam Awake alert oriented, no acute distress Right knee medial aspect is localized edema which is semi firm to palpation without erythema or warmth. Crepitus generally speaking with movement in all directions. Positive pedal pulses. Extensive varicosities upper and lower aspect of right leg, just above knee is resolving ecchymosis. She is able to bear weight Plan Check ultrasound imaging and x-ray. She was not able to go today given work. She would like to get done next week. I am okay with this as she was on Eliquis already. Advised to continue taking b.i.d.. Educated that if she develops any redness, pain to the joint, lack of circulation to the lower extremity chest pain or shortness of breath that she should seek care in the emergency room. Otherwise I will follow up with her once the imaging is resulted. Okay to apply warm moist compresses and ice elevate the limb but do not apply a bandage or compressed the limb. This note is constructed using voice recognition software. While every effort has been made to ensure accuracy in filtration supervisor, still errors may have been included Sometimes, these errors may affect the content or meaning of the given sentence . Total time spent caring for the patient today was 30 minutes. This includes time spent before the visit reviewing the chart, time spent during the visit, and time spent after the visit on documentation [facility] Medical History History of cardioversion PAF (paroxysmal atrial fibrillation) Precordial chest pain Graves disease Hypothyroidism Paroxysmal A-fib Surgical History S/P ablation of atrial fibrillation History of surgery on arm Hx of appendectomy Family History Father CVD (cardiovascular disease) Diabetes Mother HTN (hypertension) Social History Housing: House Alcohol intake: current Alcohol intake frequency: 0-2 drinks per day Alcohol type: wine Patient Tobacco Use Status: Former Tobacco user Years Smoked: 30 +/- e-Cigarette/Vaping Use: Never Used Second Hand Smoke Exposure: No Substance Use Type: Marijuana service: No 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al status: employed 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 1. Little interest or pleasure in doing things: not at all 2. Feeling down, depressed, or hopeless: not at all 3. Trouble falling or staying asleep, or sleeping too much: not at all 4. Feeling tired or having little energy: not at all 5. Poor appetite or overeating: not at all 6. Feeling bad about yourself - or that you are a failure or have let yourself or your family down: not at all 7. Trouble concentrating on things, such as reading the newspaper or watching television: not at all 8. Moving or speaking so slowly that other people could have noticed. Or the opposite - being so fidgety or restless that you have been moving around a lot more than usual: not at all 9. Thoughts that you would be better off or of hurting yourself in some way: not at all Total score: 0 09793 - PHQ-9 Billing: Yes Source: Developed by Drs. Hemanth Shoemaker, Lyla Bryan, Scot Fofana and colleagues, with an educational nicola from [employer]. Thrive Questionnaire Date Thrive assessed: 08/31/24 I am a: Patient What is your living situation today?: I have a steady place to live Within the past 12 months, did the food you bought not last and you didn't have the money to get more?: Never true Within the past 12 months, did you worry whether your food would run out before you got money to buy more?: Never true Do you have trouble paying for medicines?: No Do you have trouble getting transportation to medical appointments?: No Do you have trouble paying your heating and electricity bill?: No Do you have trouble taking care of your child, family member or friend?: No Do you have trouble with day-to-day activities such as bathing, preparing meals, shopping, managing finances, etc.?: No Are you currently unemployed and looking for a job?: No Are you interested in more education?: I choose not to answer this question Please select the resources that you would like help with: None Currently or been in a relationship where the following occur: No concerns reported THRIVE Score: 0 AUDIT C Alcohol Use Questionnaire (AUDIT-C) 1. How often do you have a drink containing alcohol?: 2-3 times a week 2. How many drinks containing alcohol do you have on a typical day when you are drinking?: 1 or 2 3. How often do you have six or more drinks on one occasion?: Never Total Score: 3 RADHA-7 AMB Questionnaire RADHA-7 Date RADHA - 7 assessed: 08/31/24 Feeling nervous, anxious, or on edge: 0 = Not at all Not being able to stop or control worryin = Not at all Worrying too much about different things: 0 = Not at all Trouble relaxin = Not at all Being so restless that it is hard to sit still: 0 = Not at all Becoming easily annoyed or irritable: 0 = Not at all Feeling afraid as if something awful might happen: 0 = Not at all Total RADHA-7 score (0-4 normal; 5-9 mild; 10-14 moderate; 15-21 severe): 0 Source: Developed by Drs. Hemanth Shoemaker, Lyla Bryan, Scot Fofana and colleagues, with an educational nicola from [employer]. RADHA-7 Assessment Billing RADHA-7 Assessment Tool: RADHA-7 Assessment 55599 Physical exam (Primary Care) Vital Signs: Last Vital Signs Pulse 77 08/31/24 12:33 Resp 14 08/31/24 12:33 BP 132/76 08/31/24 12:33 Pulse Ox 98 08/31/24 12:33 Oxygen Delivery Method Room Air 08/31/24 12:33 BMI result Body Mass Index 25.9 Tobacco/Smoking Status: Tobacco use Status Tobacco use date assessed 08/31/24 08/31/24 12:34 Patient Tobacco Use Status Former Tobacco user 08/31/24 12:32 Tobacco use type 01/07/22 15:46 e-Cigarette/Vaping Use Never Used 08/31/24 12:32 PHQ-9: PHQ-9 Score PHQ-9: Total score 0 08/31/24 12:53 Thrive Assessment: Date of Thrive Assessment Date Thrive assessed 08/31/24 08/31/24 12:32 Currently or been in a relationship where the following occur: No concerns reported Coding Level of Care Code Est Pt Level 4 (47755) Complex EM visit Add On G2211 Diagnoses Swelling of right knee joint M25.461 Varicose veins of bilateral lower extremities with other complications I83.893 Varicose vein complication: other Laterality: bilateral Additional Codes RADHA-7 Assessment Billing - RADAH-7 Assessment Tool: RADHA-7 Assessment 05894 ([id number]) Assessment & Plan Assessment & Plan (1) Swelling of right knee joint: Code(s): M25.461 - Effusion, right knee Category: Medical Plan: . (2) Varicose vein of leg: Code(s): I83.90 - Asymptomatic varicose veins of unspecified lower extremity Category: Medical Qualifiers: Varicose vein complication: other Laterality: bilateral Qualified Code(s): I83.893 - Varicose veins of bilateral lower extremities with other complications Plan: . Plan . Orders: Orders XR knee RT 4V Today I83.90 - Asymptomatic varicose veins of unspecified lower extremity, M25.461 - Effusion, right knee US venous duplex LE RT Today I83.90 - Asymptomatic varicose veins of unspecified lower extremity, M25.461 - Effusion, right knee
[2024-08-31 12:33] VITALS: BP 132/76; PULSE 77; RESP 14; O2SAT 98; BMI 25.9
== END 2024-08-31 13:04 | disposition home or self-care (01) ==
PROVIDERS: PCP Nurse Practitioner Family; Visit Provider Nurse Practitioner Family
DX: M25.461 Effusion, right knee (principal); I83.893 Varicose veins of bilateral lower extremities with other complications

== ENCOUNTER → 2024-08-31 12:18 | Outpatient (BNVA) | payer MEDICARE, SELFPAY | PROVIDERS: PCP Nurse Practitioner Family; Visit Provider Nurse Practitioner Family | DX: M25.461 Effusion, right knee (principal); I83.893 Varicose veins of bilateral lower extremities with other complications | CPT/HCPCS: 96127; 99212 ==

== ENCOUNTER 2024-09-05 11:12 | Outpatient (REF) | payer MEDICARE, SELFPAY ==
--- NOTE | ~2024-09-05 | XR_ITS ---
EXAMINATION: XR KNEE, RIGHT CLINICAL INFORMATION: Patient states lump on medial side of right knee for 8 weeks, no known injury. COMPARISON: None available. TECHNIQUE: 5 views of the right knee. FINDINGS: Focal soft tissue swelling along the medial aspect of the right knee. Tiny medial marginal osteophytes. Diffuse demineralization. Mild tricompartmental degenerative changes. There is a 1.5 cm well-corticated heterogeneous sclerotic lesion in the distal lateral femoral condyle region of uncertain etiology. Correlation with clinical history recommended to determine if history of prior surgery, trauma or other etiology. Trace joint effusion. XR/XR knee RT 4V IMPRESSION: 1. Focal soft tissue swelling along the medial aspect of the right knee. 2. Mild tricompartmental degenerative changes. 3. There is a 1.5 cm well-corticated heterogeneous sclerotic lesion in the distal femoral lateral femoral condyle region of uncertain etiology. Correlation with clinical history recommended to determine if history of prior surgery, trauma or other etiology. This study was presented today 09/05/2024 for interpretation. Stat results provided at this time as requested by referring provider. A 1 Electronically signed by: Valencia Hankins MD 09/05/2024 01:04 PM EDT
== END 2024-09-05 11:13 | disposition home or self-care (01) ==
LOC: HO.XRAY 11:12
PROVIDERS: PCP Nurse Practitioner Family; Visit Provider Nurse Practitioner Family
DX: M25.461 Effusion, right knee (principal); I83.90 Asymptomatic varicose veins of unspecified lower extremity
CPT/HCPCS: 73564

== ENCOUNTER 2024-09-19 14:10 | Outpatient (AMB) | payer MEDICARE, SELFPAY ==
--- NOTE | 2024-09-19 14:36 | MHC.OFFVIS ---
Vital Signs 09/19/24 14:37 Height 5 ft 3 in Weight 146 lb BMI 25.9 BP 120/78 Blood Pressure Location Lt brachial Position Sitting Pulse 130 H Pulse Source Monitor Intake Visit Reasons: EKG Allergies Penicillins Allergy (Severe, Verified 08/31/24 12:32) Anaphylaxis Medication List - Last Reconciled 09/19/24 by Manoj Henderson MD apixaban (Eliquis) 5 mg PO BID diltiazem HCl CD 180 mg PO DAILY 90 days Synthroid (levothyroxine) 88 mcg PO .q0d NS Synthroid (levothyroxine) 100 mcg PO .qod NS HPI Comments Details: Barbara is here for a sick visit. She has not been feeling good for the last couple of weeks. She has been noticing palpitations with other symptoms like generally feeling unwell. To recall, she has had atrial fibrillation in the past. She underwent cardioversions, but kept going back into atrial fibrillation in spite of flecainide. Eventually, saw EP and underwent ablation in 10/2021. Otherwise, she is feeling fine. With regard to medications, she is on diltiazem CD 180 mg daily. With regard to Eliquis, she is taking only once a day and not the usual twice a day. ON LICENSE OF [facility] Medical History History of cardioversion PAF (paroxysmal atrial fibrillation) Precordial chest pain Graves disease Hypothyroidism Paroxysmal A-fib Surgical History S/P ablation of atrial fibrillation History of surgery on arm Hx of appendectomy Family History Father CVD (cardiovascular disease) Diabetes Mother HTN (hypertension) Social History Housing: House Alcohol intake: current Alcohol intake frequency: 0-2 drinks per day Alcohol type: wine Patient Tobacco Use Status: Former Tobacco user Years Smoked: 30 +/- e-Cigarette/Vaping Use: Never Used Second Hand Smoke Exposure: No Substance Use Type: Marijuana service: No 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al status: employed 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) Cognitive needs: No Hearing needs: No Vision needs: No Review of Systems Const Denies weakness ENT Denies dizziness Card Reports chest pain, Denies chest pain with activity, Denies syncope, Denies rapid heart rate, Denies pedal edema, Denies edema, Denies leg edema, Reports lightheadedness, Reports palpitations, Reports dyspnea, Denies dyspnea on exertion and Denies orthopnea Resp Denies cough, Reports dyspnea and Denies dyspnea on exertion GI Denies hematochezia and Denies change in stool character Musc Denies abnormal gait, Denies muscle cramps, Denies muscle weakness, Denies numbness, Denies radiating pain into limb and Denies tingling Neuro Denies abnormal gait, Denies dizziness, Denies syncope, Denies numbness, Denies tingling and Denies weakness Endo Reports palpitations Physical Exam Vital Signs: Last Vital Signs Pulse 130 H 09/19/24 14:37 BP 120/78 09/19/24 14:37 BMI result Body Mass Index 25.9 Const General: comfortable and no acute distress Orientation/consciousness: patient oriented x3 HEENT Other: Unremarkable Head: Yes normal to inspection Neck Neck: Yes normal visual inspection Chest Chest palpation & inspection: normal inspection of the chest Resp Auscultation: clear to auscultation bilaterally Cardio Palpation: normal PMI Heart sounds: S1 normal heart sound present, S2 normal heart sound present, no gallops, no murmurs and no rubs GI Palpation (GI): Soft to palpation Back/Spine/Pelvis Other: unremarkable Skin General skin exam: no rashes or lesions noted Neuro General: patient oriented x3 Extrem General: Yes normal to inspection Psych Mental Status: mental status grossly normal Office Procedures EKG Details: EKG with atrial flutter at 130/Min. Some T inversions in the inferior and anterolateral leads. [id number], Complete Assessment & Plan Assessment & Plan (1) Atrial flutter with rapid ventricular response: Code(s): I48.92 - Unspecified atrial flutter Category: Medical Plan: EKG today shows atrial flutter with rapid ventricular rate. Possible time of onset couple of weeks ago. As she clearly feels palpitations, we can add metoprolol. Try 50 mg b.i.d. if the blood pressure can tolerate. If she gets dizzy extra, we can lower the dose. Strongly advised to increase the Eliquis to twice a day. Message sent to regarding further care, probably another ablation. Advised to avoid any strenuous physical activity. (2) PAF (paroxysmal atrial fibrillation): Code(s): I48.0 - Paroxysmal atrial fibrillation Category: Medical Plan: Status post cardioversion in the past and then ablation. Currently in atrial flutter as above. (3) Abnormal EKG: Code(s): R94.31 - Abnormal electrocardiogram [ECG] [EKG] Category: Medical Plan: She has chronic inferior/anterolateral T inversions. Clinically, no angina. Perfusion imaging in the past without any significant abnormalities. (4) FANY (obstructive sleep apnea): Code(s): G47.33 - Obstructive sleep apnea (adult) (pediatric) Category: Medical Plan: Sleep study shows mild obstructive sleep apnea. Not interested in CPAP. Orders: Referrals Cardiac Electrophysiology Referral I48.92 - Unspecified atrial flutter Medications: New metoprolol tartrate 50 mg PO BID 90 days 180 tabs 1RF Coding Level of Care Code Est Pt Level 4 (02803) Diagnoses Atrial flutter with rapid ventricular response I48.92 PAF (paroxysmal atrial fibrillation) I48.0 Abnormal EKG R94.31 FANY (obstructive sleep apnea) G47.33 CPT Codes EKG - CPT: 30498-[id number], Complete ([id number])
[2024-09-19 14:37] VITALS: BP 120/78; PULSE 130; BMI 25.9
== END 2024-09-19 14:49 | disposition home or self-care (01) ==
PROVIDERS: PCP Nurse Practitioner Family; Visit Provider Internal Medicine
DX: I48.92 Unspecified atrial flutter (principal); I48.0 Paroxysmal atrial fibrillation; R94.31 Abnormal electrocardiogram [ECG] [EKG]; G47.33 Obstructive sleep apnea (adult) (pediatric)
CPT/HCPCS: 93010; 99214

== ENCOUNTER → 2024-09-19 14:10 | Outpatient (BNVA) | payer MEDICARE, SELFPAY | PROVIDERS: PCP Nurse Practitioner Family; Visit Provider Internal Medicine | DX: I48.92 Unspecified atrial flutter (principal); I48.0 Paroxysmal atrial fibrillation; R94.31 Abnormal electrocardiogram [ECG] [EKG]; G47.33 Obstructive sleep apnea (adult) (pediatric); Z79.01 Long term (current) use of anticoagulants; Z87.891 Personal history of nicotine dependence; Z79.899 Other long term (current) drug therapy | CPT/HCPCS: 93005; 99212 ==

== ENCOUNTER 2024-10-10 13:00 | Outpatient (AMB) | payer MEDICARE, SELFPAY ==
--- NOTE | 2024-10-10 13:05 | A.OFFVIS_ITS ---
Vital Signs 10/10/24 13:06 Height 5 ft 3 in Weight 146 lb BMI 25.9 Intake Visit Reasons: Right knee pain Intake Note: Barbara is a 69 year old female who presents with right knee pain. She describes her pain as sharp in nature. The patient states that she has also noticed ?a mass? hole along the medial aspect of her right knee. She states that the mass has been present for the last few months. She denies any recent trauma. She reports intermittent popping sensation. She has tried Tylenol which gives only mild relief. She is not able to take anti-inflammatory medicines because she is on Eliquis. She has tried physical therapy exercises which aggravated her pain. Allergies Penicillins Allergy (Severe, Verified 10/10/24 13:06) Anaphylaxis Medication List - Last Reconciled 10/10/24 by Gen Castro MD apixaban (Eliquis) 5 mg PO BID diltiazem HCl CD 180 mg PO DAILY 90 days metoprolol tartrate 50 mg PO BID 90 days Synthroid (levothyroxine) 88 mcg PO .q0d NS Synthroid (levothyroxine) 100 mcg PO .qod NS [facility] Medical History History of cardioversion PAF (paroxysmal atrial fibrillation) Precordial chest pain Graves disease Hypothyroidism Paroxysmal A-fib Surgical History S/P ablation of atrial fibrillation History of surgery on arm Hx of appendectomy Family History Father CVD (cardiovascular disease) Diabetes Mother HTN (hypertension) Social History Housing: House Alcohol intake: current Alcohol intake frequency: 0-2 drinks per day Alcohol type: wine Patient Tobacco Use Status: Former Tobacco user Years Smoked: 30 +/- e-Cigarette/Vaping Use: Never Used Second Hand Smoke Exposure: No Substance Use Type: Marijuana service: No 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al status: employed 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) Cognitive needs: No Hearing needs: No Vision needs: No Physical Exam Vital Signs: BMI result Body Mass Index 25.9 Const Other: Well-nourished well-developed very friendly female awake alert and oriented x3 in no acute distress Extrem Other: Right knee examination shows a minimal effusion, minimal crepitus with range of motion, tenderness along her medial joint line, there is a palpable mass measuring approximately 3 cm x 4 cm along the medial aspect of her right knee, no overlying skin lesions, minimal tenderness to palpation Results Reviewed Results Reviewed: X-rays of the patient's right knee taken previously show mild diffuse joint space narrowing, ?a well corticated heterogeneous sclerotic lesion in the distal lateral femoral condyle region of uncertain etiology? Assessment & Plan Assessment & Plan (1) Right knee pain: Code(s): M25.561 - Pain in right knee Plan Ms. Black presents with right knee pain and mechanical symptoms most likely due to a tear of her medial meniscus. She also has a sclerotic lesion within the distal aspect of her femur and a soft tissue mass along the medial aspect of her right knee of unclear etiology. Thus, I will send the patient for a right knee MRI with and without IV contrast for further evaluation of her bony lesion, soft tissue mass and possible medial meniscus tear. I will contact her by phone once the MRI results are available. Feel free to call me at any time should questions regarding her orthopedic management arise. Thank you very much for asking me to see this very friendly patient. I spent 22 minutes in reviewing the patient's records and imaging studies, seeing the patient and documenting in the medical record. Orders: Orders MR knee RT wo/w con 10/10/24 R22.41 - Localized swelling, mass and lump, right lower limb Coding Level of Care Code New Pt Level 3 (82250) Complex EM visit Add On G2211 Diagnoses Right knee pain M25.561
[2024-10-10 13:06] VITALS: BMI 25.9
== END 2024-10-10 13:41 | disposition home or self-care (01) ==
PROVIDERS: PCP Nurse Practitioner Family; Visit Provider Orthopaedic Surgery
DX: M25.561 Pain in right knee (principal)
CPT/HCPCS: 99203; G2211

== ENCOUNTER → 2024-10-10 13:00 | Outpatient (BNVA) | payer MEDICARE, SELFPAY | PROVIDERS: PCP Nurse Practitioner Family; Visit Provider Orthopaedic Surgery | DX: M25.561 Pain in right knee (principal) | CPT/HCPCS: 99202 ==

== ENCOUNTER 2024-10-26 13:35 | Outpatient (REF) | payer MEDICARE, SELFPAY ==
[2024-10-26] MEDS: gadobutroL 7.5 ML VIAL IVPUSH (14:29)
== END 2024-10-26 13:36 | disposition home or self-care (01) ==
LOC: HO.MRI 13:35
PROVIDERS: PCP Nurse Practitioner Family; Visit Provider Orthopaedic Surgery
DX: R22.41 Localized swelling, mass and lump, right lower limb (principal)
CPT/HCPCS: 73723; A9585

== ENCOUNTER → 2024-10-26 13:48 | Outpatient (BNV) | payer MEDICARE, SELFPAY | PROVIDERS: PCP Nurse Practitioner Family; Visit Provider Radiology Diagnostic Radiology | DX: M25.761 Osteophyte, right knee (principal) | CPT/HCPCS: 73723 ==

== ENCOUNTER 2024-11-06 09:29 | Outpatient (REF) | payer MEDICARE, SELFPAY | END 2024-11-06 09:30 | disposition home or self-care (01) | LOC: HO.MAMMO 09:29 | PROVIDERS: PCP Family Medicine; Visit Provider Family Medicine | DX: Z12.31 Encounter for screening mammogram for malignant neoplasm of breast (principal) | CPT/HCPCS: 77063; 77067 ==

== ENCOUNTER → 2024-11-06 09:30 | Outpatient (BNV) | payer MEDICARE, SELFPAY | PROVIDERS: PCP Family Medicine; Visit Provider Internal Medicine | DX: Z12.31 Encounter for screening mammogram for malignant neoplasm of breast (principal) | CPT/HCPCS: 77063; 77067 ==

== ENCOUNTER 2024-12-05 09:09 | Outpatient (REF) | payer MEDICARE, SELFPAY ==
--- NOTE | ~2024-12-05 | XR_ITS ---
EXAMINATION: XR CHEST CLINICAL INFORMATION: R05 - Cough COMPARISON: None available. TECHNIQUE: 2 views of the chest were obtained. FINDINGS: The lungs are well-expanded with increased vascular markings but no consolidation or pleural effusion. The heart size is normal. No gross bony abnormality seen. XR/XR chest 2V IMPRESSION: Bilateral increased vascular markings question mild congestion. Electronically signed by: Brad Bucio MD 12/05/2024 11:03 AM NATHAN
== END 2024-12-05 09:10 | disposition home or self-care (01) ==
LOC: HO.HMGCX 09:09
PROVIDERS: PCP Family Medicine; Visit Provider Nurse Practitioner Family
DX: R05.1 Acute cough (principal); R06.2 Wheezing; I48.91 Unspecified atrial fibrillation; F10.20 Alcohol dependence, uncomplicated
CPT/HCPCS: 71046; 96127; 99212

== ENCOUNTER 2024-12-05 09:09 | Outpatient (AMB) | payer MEDICARE, SELFPAY ==
--- NOTE | 2024-12-05 09:14 | A.OFFPC_ITS ---
Vital Signs 12/05/24 09:19 Height 5 ft 3 in Weight 147 lb 4 oz BMI 26.1 BP 124/70 Blood Pressure Location Lt brachial Position Sitting Respiration 12 Pulse 112 H Pulse Source Pulse Oximeter Temp 98.1 F Temp Source Oral Pulse Oximetry (%) 98 Oxygen Delivery Method Room Air Intake Visit Reasons: lung congestion Intake Note: Patient complaining of chest congestion x1 week. Patient spouse had pneumonia x 2 weeks ago. National Secretary Required: No Allergies Penicillins Allergy (Severe, Verified 12/05/24 09:36) Anaphylaxis Medication List - Last Reconciled 12/05/24 by Miriam Rouse, ONLINE MERCHANDISER- apixaban (Eliquis) 5 mg PO BID diltiazem HCl CD 180 mg PO DAILY metoprolol tartrate 50 mg PO BID 90 days Synthroid (levothyroxine) 88 mcg PO .q0d NS Synthroid (levothyroxine) 100 mcg PO .qod NS Tobacco use date assessed: 08/31/24 Dental Screening Dental Screen Date: 08/26/23 HPI HPI Comments History of Present Illness Details Here today with concerns for PNA She was exposed to with PNA + cough, productive About 3 days ago, sx were worse A little better now does endorse some orthopnea, trouble laying flat + headache tea and honey to help w/o relief Denies fever, chills, sore throat, ear aches. She also endorses a history of AFib with RVR. She requires an ablation. She asks for help with reducing her alcohol intake. Reports that she drinks at least 3 glasses of wine every single day. She is aware that this affects her heart health and she was very eager to reduce. Exam Awake alert NAD Sclera and conjunctiva clear bilat Nares patent, turbinates within normal limits, no sinus tenderness with palpation bilat TM intact and clear bilat MMM, pharynx WNL Irregularly irregular with runs of tachycardia LS right upper lobe with coarse rhonchi otherwise clear No edema BLE Plan Stat chest x-ray today to evaluate her pulmonary concerns. Referral to the comprehensive [facility] in [place] to help her reduce her alcohol intake. I called the patient at 15:41 with her chest x-ray results. Concern for component of vascular congestion in the setting of AFib with RVR. Reviewed the EKG that was done in September. Patient does report that she is very aware of her cardiac status however she has been for [facility] for several reasons. She further discloses that today after the office visit that she developed shock-like pains that came and went in her chest. She treated herself with an aspirin went for a walk and feels back to baseline. Educated her about the risks of AFib along with the findings on the chest x-ray today and recommended hospital evaluation. The patient does not wish to go to the hospital. She wishes to proceed as an outpatient. Made aware that her symptoms could worsen and that ultimately this could result in undesirable consequences up to and including . She was aware of this however wishes to proceed as an outpatient. I will prescribe a short course of diuretics. She was taking her metoprolol along with her diltiazem and her Eliquis as prescribed. I will send a heads up to her ultrasound technician and I have also CC him on the outpatient EKG which we done tomorrow at [facility]. Work group message sent to Cards at [facility]. Total time spent caring for the patient today was 45 minutes. This includes time spent before the visit reviewing the chart, time spent during the visit, and time spent after the visit on documentation, reviewing laboratory results, diagnostic imaging, medications, performing a medically necessary evaluation, counseling on diagnoses, care coordination, ordering appropriate tests, ordering appropriate medications, review of tests performed by other providers, reporting test results with the patient, communication with other healthcare providers. [facility] Medical History History of cardioversion PAF (paroxysmal atrial fibrillation) Precordial chest pain Graves disease Hypothyroidism Paroxysmal A-fib Surgical History S/P ablation of atrial fibrillation History of surgery on arm Hx of appendectomy Family History Father CVD (cardiovascular disease) Diabetes Mother HTN (hypertension) Social History Housing: House Alcohol intake: current Alcohol intake frequency: 0-2 drinks per day Alcohol type: wine Patient Tobacco Use Status: Former Tobacco user Years Smoked: 30 +/- e-Cigarette/Vaping Use: Never Used Second Hand Smoke Exposure: No Substance Use Type: Marijuana service: No 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al status: employed 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 1. Little interest or pleasure in doing things: not at all 2. Feeling down, depressed, or hopeless: not at all 3. Trouble falling or staying asleep, or sleeping too much: not at all 5. Poor appetite or overeating: not at all 6. Feeling bad about yourself - or that you are a failure or have let yourself or your family down: not at all 7. Trouble concentrating on things, such as reading the newspaper or watching television: not at all 8. Moving or speaking so slowly that other people could have noticed. Or the opposite - being so fidgety or restless that you have been moving around a lot more than usual: not at all 9. Thoughts that you would be better off or of hurting yourself in some way: not at all [address]3857 - PHQ-9 Billing: Yes Source: Developed by Drs. Hemanth Shoemaker, Lyla Bryan, Scot Fofana and colleagues, with an educational nicola from [employer]. Thrive Questionnaire Date Thrive assessed: 12/05/24 I am a: Patient What is your living situation today?: I have a steady place to live Within the past 12 months, did the food you bought not last and you didn't have the money to get more?: Never true Within the past 12 months, did you worry whether your food would run out before you got money to buy more?: Never true Do you have trouble paying for medicines?: No Do you have trouble getting transportation to medical appointments?: No Do you have trouble paying your heating and electricity bill?: No Do you have trouble taking care of your child, family member or friend?: No Do you have trouble with day-to-day activities such as bathing, preparing meals, shopping, managing finances, etc.?: No Are you currently unemployed and looking for a job?: No Are you interested in more education?: No Please select the resources that you would like help with: None THRIVE Score: 0 RADHA-7 AMB Questionnaire RADHA-7 Date RADHA - 7 assessed: 08/31/24 Source: Developed by Drs. Hemanth Shoemaker, Lyla Bryan, Scot Fofana and colleagues, with an educational nicola from [employer]. Physical exam (Primary Care) Vital Signs: Last Vital Signs Temp 98.1 F 12/05/24 09:19 Pulse 112 H 12/05/24 09:19 Resp 12 12/05/24 09:19 BP 124/70 12/05/24 09:19 Pulse Ox 98 12/05/24 09:19 Oxygen Delivery Method Room Air 12/05/24 09:19 BMI result Body Mass Index 26.1 Tobacco/Smoking Status: Tobacco use Status Tobacco use date assessed 08/31/24 12/05/24 09:15 Patient Tobacco Use Status Former Tobacco user 12/05/24 09:15 Tobacco use type 09/19/24 13:47 e-Cigarette/Vaping Use Never Used 12/05/24 09:15 Thrive Assessment: Date of Thrive Assessment Date Thrive assessed 12/05/24 12/05/24 09:15 Results Reviewed Results Reviewed: [facility] [address] [place] [address] [place] [address] XRay Report Signed Patient: Barbara Black MR#: [id number] : 1955 Acct:[id number] Age/Sex: 69 / F ADM Date: 12/05/24 Loc: .[facility] Attending Dr: Miriam HUTSON Ordering Physician: Miriam Rouse Date of Service: 12/05/24 Procedure(s): XR chest 2V Accession Number(s): [id number] cc: Joe Ewing MD; Miriam Rouse~ EXAMINATION: XR CHEST CLINICAL INFORMATION: R05 - Cough COMPARISON: None available. TECHNIQUE: 2 views of the chest were obtained. FINDINGS: The lungs are well-expanded with increased vascular markings but no consolidation or pleural effusion. The heart size is normal. No gross bony abnormality seen. XR/XR chest 2V IMPRESSION: Bilateral increased vascular markings question mild congestion. Electronically signed by: Brad Bucio MD 12/05/2024 11:03 AM EST RP Dictated By: Brad Bucio MD Signed By: <Electronically signed by Brad Bucio MD in OV> 12/05/24 1103 DD/ 1020 TD/TT: 12/05/24 1027 Android Ui Developer: PARISH Coding Level of Care Code Est Pt Level 5 (23073) Complex EM visit Add On G2211 Diagnoses Uncomplicated alcohol dependence F10.20 Substance use status: uncomplicated Acute cough R05.1 Cough type: acute Atrial fibrillation with rapid ventricular response I48.91 Additional Codes PHQ-9 - 03862 - PHQ-9 Billing: Yes ([id number]) Assessment & Plan Assessment & Plan (1) EtOH dependence: Code(s): F10.20 - Alcohol dependence, uncomplicated Category: Medical Qualifiers: Substance use status: uncomplicated Qualified Code(s): F10.20 - Alcohol dependence, uncomplicated (2) Cough: Code(s): R05 - Cough Category: Medical Qualifiers: Cough type: acute Qualified Code(s): R05.1 - Acute cough (3) Atrial fibrillation with rapid ventricular response: Code(s): I48.91 - Unspecified atrial fibrillation Category: Medical Plan . Orders: Orders XR chest 2V Today R05 - Cough, R06.2 - Wheezing ECG 12 lead EKG Today I48.91 - Unspecified atrial fibrillation Referrals Addiction Medicine Referral F10.20 - Alcohol dependence, uncomplicated Medications: New furosemide 20 mg PO DAILY 14 tabs 0RF
[2024-12-05 09:19] VITALS: BP 124/70; PULSE 112; RESP 12; TEMP 36.7; O2SAT 98; BMI 26.1
== END 2024-12-05 11:13 | disposition home or self-care (01) ==
PROVIDERS: PCP Family Medicine; Visit Provider Nurse Practitioner Family
DX: F10.20 Alcohol dependence, uncomplicated (principal); R05.1 Acute cough; I48.91 Unspecified atrial fibrillation

== ENCOUNTER → 2024-12-05 10:20 | Outpatient (BNV) | payer MEDICARE, SELFPAY | PROVIDERS: PCP Family Medicine; Visit Provider Radiology Diagnostic Radiology | DX: R05.9 Cough, unspecified (principal) | CPT/HCPCS: 71046 ==

== ENCOUNTER → 2024-12-07 12:35 | Outpatient (BNVA) | payer MEDICARE, SELFPAY | PROVIDERS: PCP Family Medicine; Visit Provider Internal Medicine ==

== ENCOUNTER → 2024-12-07 14:37 | Outpatient (REF) | payer MEDICARE, SELFPAY ==
--- NOTE | 2024-12-07 14:40 | CA_ITS ---
Transthoracic Echocardiogram Patient (Last, First, Middle): Barbara Black, Gender: Female Date of : 1955 Age: 69 Procedure Date: 12/07/2024 Procedure Type: Transthoracic Echocardiogram Location: OP Height: 160. cm Weight: 66.68 kg BSA: 1.70 m2 Heart Rate: 98 bpm BP: 110 / 85 mmHg Tree Feller Operator: MELVIN Referring MD: Manoj Henderson MD Symptoms: I48.92 - Unspecified atrial flutter Study Quality: Fair ECG Rhythm: Atrial flutter Conclusions: - The left ventricular systolic function is normal. The calculated ejection fraction is 56% by biplane method. - Left atrium probably [id number] dilated. - There is mild mitral valve regurgitation. Findings Left Ventricle Normal left ventricular cavity size. The left ventricular systolic function is normal. The calculated ejection fraction is 56% by biplane method. There is no evidence of regional wall motion abnormalities. Diastolic function is indeterminate on the basis of available data. Mild focal hypertrophy of the basal septum. Right Ventricle There is normal right ventricular systolic function. Top normal right ventricular size. Atria Left atrium probably [id number] dilated. The right atrium is normal in size. Aortic Valve There is a normal trileaflet aortic valve. There is no aortic valve stenosis. There is no aortic valve regurgitation. Mitral Valve The mitral valve appears normal. There is mild mitral valve regurgitation. There is no mitral valve stenosis. Pulmonic Valve The pulmonic valve is likely normal. Tricuspid Valve There is trace tricuspid valve regurgitation. There is no evidence of pulmonary hypertension. Great Vessels The asc aorta is normal in size. Venous The inferior vena cava is normal in size and collapses greater than 50% with inspiration. Pericardium/Pleural There is no evidence of pericardial effusion. Prior Study Comparison No significant change compared to prior study dated: 12/31/2020. Measurements 2D Linear Measurements IVSd: 0.96 0.6-0.9/0.6-1.0 cm LVIDd: 4.61 3.9-5.3/4.2-5.9 cm LVIDd Index: 2.71 2.4-3.2/2.2-3.1 cm/m2 LVIDs: 2.78 2.0-3.6 cm LVPWd: 1.09 0.7-1.1 cm LA Diam: 4.00 2.7-3.8/3.0-4.0 cm LAIDs Index: 2.35 1.5-2.3 cm/m2 LV Mass: 205.89 67-162/88-224 g LV Mass Index: 121.11 43-95/49-115 g/m2 LVOT Diam: 1.90 3.0+(-)1.3 cm 2D Systolic Function EF 4C: 56.50 >55% EF 2C: 53.90 >55% EF BiP: 56.10 >55% Mitral Valve MV Pk E: 0.76 MV Decel Time: 151.00 E'Lateral: 10.90 E'Medial: 5.04 E/E' Med: 15.10 E/E' Lat: 7.00 PHT: 44.00 MVA PHT: 5.00 Decel Converse: 5.04 MR VTI: 1.53 Aortic Valve AoV Pk Misbah: 1.11 AoV Mn Misbah: 0.82 AoV VTI: 0.19 AoV Pk Grad: 5.00 Aov Mn Grad: 3.00 FANNY Cont.VTI: 1.57 LVOT LVOT Pk Misbah: 0.64 LVOT Mn Misbah: 0.43 LVOT VTI: 0.10 LVOT Pk Grad: 2.00 LVOT Mn Grad: 1.00 LVOT Diam: 1.90 LVOT Area: 2.84 Diastolic Function MV Pk E: 0.76 E'Medial: 5.04 E/E' Med: 15.10 E' Laterial: 10.90 E/E' Lat: 7.00 Right Ventricle TAPSE (mm): 19.90 TVS' Misbah: 14.40 Tricuspid Valve TR Pk Misbah: 2.01 TR Pk Grad: 16.00 RA Press: 3.00 RVSP: 19.00 Great Vessels Aorta Sinus of Valsalva: 3.30 2.0-3.5 cm Ao Asc: 3.10 2.1-3.4 cm Pulmonary Valve PV Pk Misbah: 0.79 Peak PV Grad: 2.00 Updated in Other Vendor System with Status of Final Manoj Henderson MD electronically signed on 12/09/2024 10:52:14 AM with status of Final
== END ==
LOC: HO.CARD 14:37
PROVIDERS: Visit Provider Internal Medicine
DX: I48.92 Unspecified atrial flutter (principal)
CPT/HCPCS: 93306

== ENCOUNTER 2024-12-11 09:07 | Outpatient (AMB) | payer MEDICARE, SELFPAY ==
--- NOTE | 2024-12-11 09:33 | A.OFFVISCC_ITS ---
Vital Signs 12/11/24 09:34 Weight 145 lb BP 140/80 H Position Sitting Respiration 19 Pulse 116 H Pulse Source Pulse Oximeter Pulse Oximetry (%) 98 Oxygen Delivery Method Room Air Intake Visit Reasons: Intake Allergies Penicillins Allergy (Severe, Verified 12/05/24 09:36) Anaphylaxis HPI HPI Intake: Details: Patient presents for intake and evaluation of alcohol Reports she is drinking a box of wine every 3 days Has cut down to 1/2 bottle of wine a day is not happy with her drinking Years of drinking daily Starts drinking at 4pm and stops after dinner Finds that alcohol gives her energy also helps with the anxiety Review of Systems Const Reports as per HPI Physical Exam Vital Signs: Last Vital Signs Pulse 116 H 12/11/24 09:34 Resp 19 12/11/24 09:34 BP 140/80 H 12/11/24 09:34 Pulse Ox 98 12/11/24 09:34 Oxygen Delivery Method Room Air 12/11/24 09:34 Results AMB 14 Panel Urine Drug Screen Urine Marijuana (THC) Negative Last Edit by Rosaura Steele RN on 12/11/24 09:36 Urine Cocaine Negative Last Edit by Rosaura Steele RN on 12/11/24 09:36 Urine Morphine Negative Last Edit by Rosaura Steele RN on 12/11/24 09:36 Urine Methamphetamine Negative Last Edit by Rosaura Steele RN on 12/11/24 09:36 Urine Amphetamine Negative Last Edit by Rosaura Steele RN on 12/11/24 09:36 Urine Benzodiazepine Negative Last Edit by Rosaura Steele RN on 12/11/24 09 :36 Urine Barbiturates Negative Last Edit by Rosaura Steele RN on 12/11/24 09:3 6 Urine Methadone Negative Last Edit by Rosaura Steele RN on 12/11/24 09:36 Urine Buprenorphine Negative Last Edit by Rosaura Steele RN on 12/11/24 09: 36 Urine Tricyclic Antidepressant Negative Last Edit by Rosaura Steele RN on 12/11/24 09:36 Urine MDMA Negative Last Edit by Rosaura Steele RN on 12/11/24 09:36 Urine Oxycodone Negative Last Edit by Rosaura Steele RN on 12/11/24 09:36 Urine Phencyclidine Negative Last Edit by Rosaura Steele RN on 12/11/24 09: 36 Urine Propoxyphene Negative Last Edit by Rosaura Steele RN on 12/11/24 09:3 6 Quality Reporting (2019) Depression/Bipolar (159/160/161/177) PHQ-9: Total score: 8 Results Reviewed Results Reviewed: Laboratory Last Values POC Urine Buprenorphine Negative 12/11/24 09:34 POC Urine Morphine Negative 12/11/24 09:34 POC Urine Oxycodone Negative 12/11/24 09:34 POC Urine Methadone Negative 12/11/24 09:34 POC Urine Propoxyphene Negative 12/11/24 09:34 POC Urine Barbiturates Negative 12/11/24 09:34 POC U Tricyclic Antidpr Negative 12/11/24 09:34 POC Urine PCP Negative 12/11/24 09:34 POC Ur Amphetamines Negative 12/11/24 09:34 POC Ur Methamphetamine Negative 12/11/24 09:34 POC Urine MDMA Negative 12/11/24 09:34 POC Ur Benzodiazepine Negative 12/11/24 09:34 POC Urine Cocaine Negative 12/11/24 09:34 POC Ur Marijuana (THC) Negative 12/11/24 09:34 PFSH Medical History History of cardioversion PAF (paroxysmal atrial fibrillation) Precordial chest pain Graves disease Hypothyroidism Paroxysmal A-fib Surgical History S/P ablation of atrial fibrillation History of surgery on arm Hx of appendectomy Family History Father CVD (cardiovascular disease) Diabetes Mother HTN (hypertension) Social History (Updated 12/07/24 @ 12:51 by Christiane Meza CMA) Housing: House Alcohol intake: former Patient Tobacco Use Status: Former Tobacco user Years Smoked: 30 +/- e-Cigarette/Vaping Use: Never Used Second Hand Smoke Exposure: No Substance Use Type: Marijuana service: No 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al status: employed 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) Cognitive needs: No Hearing needs: No Vision needs: No Assessment & Plan Assessment & Plan (1) Alcohol use disorder, severe, dependence: Code(s): F10.20 - Alcohol dependence, uncomplicated Category: Medical Plan: * Naltrexone 50mg QD --reviewed medication, side effects and goals * risk reduction discussion and tools provided * follow up one month Orders: Orders AMB 14 Panel Urine Drug Screen Today Z51.81 - Encounter for therapeutic drug level monitoring Medications: New naltrexone take 1/2 tab daily for 3 days then increase to one tab daily 50 mg PO DAILY 30 tabs 0RF MAT Intake Nursing Intake Reason for visit: looking to cut down on drinking Are you currently using?: Yes What are you taking?: Wine When was your last use?: Yesterday How much?: Half a bottle 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 Social History Domestic Violence concerns: Denies Do you have a support system?: of many years Current mode of transportation?: She drives Where are you currently residing?: [place] Drug Use Have you ever shared needles?: No Have you ever belonged to a needle exchange program?: No Do you buy needles at a pharmacy?: No Have you ever overdosed?: No Have you ever been hospitalized for an overdose?: No Was Naloxone administered?: Not applicable Recovery History Have you had any periods of recovery?: No Have you ever had inpatient treatment for your substance abuse disorder?: No Have you been in an inpatient detoxification program?: No Have you been in an inpatient Rehab/[place] house?: No Have you been in an outpatient Methadone Maintenance program?: No Have you been in an outpatient Suboxone Maintenance program?: No Have you been in an AA/NA support program?: No Have you had a Recovery Support Ceramic Plater?: No Have you had Peer Support?: No Behavioral Health History Do you have a current provider? If so, who?: Denies BH diagnosis: Denies History of other addictive behavior: Denies History of self harming thoughts?: No History of homicidal or suicidal intentions?: No Medical Conditions Endocarditis?: No Skin Infection: No Seizure related to withdrawal or overdose: No Head or brain injury: No Hepatitis A (if yes, have you been treated?): No Hepatitis B (if yes, have you been treated?): No Hepatitis C (if yes, have you been treated?): No HIV (if yes, have you been treated?): No TB (if yes, have you been treated?): No Other: No Details: Patient states a new diagnosis of CHF Legal History History of incarceration: Yes Currently on parole or probation: No Court mandated programs: No Pending court cases: No DCF involvement: No PHQ-9 Over the last 2 weeks, how often have you been bothered by any of the following problems? 1. Little interest or pleasure in doing things: not at all 2. Feeling down, depressed, or hopeless: several days 3. Trouble falling or staying asleep, or sleeping too much: several days 4. Feeling tired or having little energy: several days 5. Poor appetite or overeating: several days 6. Feeling bad about yourself - or that you are a failure or have let yourself or your family down: more than half the days 7. Trouble concentrating on things, such as reading the newspaper or watching television: several days 8. Moving or speaking so slowly that other people could have noticed. Or the opposite - being so fidgety or restless that you have been moving around a lot more than usual: several days 9. Thoughts that you would be better off or of hurting yourself in some way: not at all Total score: 8 Depression Screening Interpretation: Positive Depression Screening Follow-up: Other (Addressing Alcohol use disorder will revisit as treatment progresses ) Depression Screening Done: Yes 43574 - PHQ-9 Billing: Yes Source: Developed by Drs. Hemanth Shoemaker, Lyla Bryan, Scot Fofana and colleagues, with an educational nicola from [employer]. RADHA-7 AMB Questionnaire RADHA-7 Date RADHA - 7 assessed: 12/11/24 Feeling nervous, anxious, or on edge: 1 = Several days Not being able to stop or control worryin = Several days Worrying too much about different things: 1 = Several days Trouble relaxin = More than half the days Being so restless that it is hard to sit still: 2 = More than half the days Becoming easily annoyed or irritable: 2 = More than half the days Feeling afraid as if something awful might happen: 1 = Several days Total RADHA-7 score (0-4 normal; 5-9 mild; 10-14 moderate; 15-21 severe): 10 Source: Developed by Drs. Hemanth Shoemaker, Lyla Bryan, Scot Fofana and colleagues, with an educational nicola from [employer] RADHA-7 Assessment Billing RADHA-7 Assessment Tool: RADHA-7 Assessment [id number]
[2024-12-11 09:34] VITALS: BP 140/80; PULSE 116; RESP 19; O2SAT 98
== END 2024-12-11 10:26 | disposition home or self-care (01) ==
PROVIDERS: PCP Family Medicine; Visit Provider Nurse Practitioner Psychiatric/Mental Health
DX: Z51.81 Encounter for therapeutic drug level monitoring (principal)

== ENCOUNTER → 2024-12-11 09:07 | Outpatient (BNVA) | payer MEDICARE, SELFPAY | PROVIDERS: PCP Family Medicine; Visit Provider Nurse Practitioner Psychiatric/Mental Health | DX: Z51.81 Encounter for therapeutic drug level monitoring (principal); F10.20 Alcohol dependence, uncomplicated | CPT/HCPCS: 80307; 96127; 99202 ==

== ENCOUNTER 2025-03-12 08:09 | Outpatient (AMB) | payer MEDICARE, SELFPAY ==
[2025-03-12 08:17] VITALS: BP 100/62; PULSE 62; BMI 25.9
--- NOTE | 2025-03-12 08:17 | A.OFFVIS_ITS ---
Vital Signs 03/12/25 08:17 Height 5 ft 3 in Weight 145 lb 15.136 oz BMI 25.9 BP 100/62 Blood Pressure Location Lt brachial Position Sitting Pulse 62 Pulse Source Monitor Intake Visit Reasons: 1 yr f/up Legal Executive Assistant Required: No Allergies Penicillins Allergy (Severe, Verified 03/12/25 08:20) Anaphylaxis Medication List - Last Reconciled 03/12/25 by Nerissa Williamson, JESSICA-C apixaban (Eliquis) 5 mg PO BID diltiazem HCl CD 180 mg PO DAILY furosemide 20 mg PO DAILY metoprolol tartrate 50 mg PO BID naltrexone 50 mg PO DAILY Synthroid (levothyroxine) 88 mcg PO .q0d NS Synthroid (levothyroxine) 100 mcg PO .qod NS HPI HPI 1 yr f/up: Details: Barbara is a 69 yo female with PMH of mild FANY no CPAP use, abnormal EKG with chronic T wave inversion inferolateral leads, Persistent AF with prior cardioversion then ablation 10/2021, recurrent AF 09/2024 treated with rate control then underwent repeat ablation 01/15/2025. She now presents for follow up. Today she reports that she has done well since her ablation. She has not had any known recurrent atrial fibrillation. She has had no recent medication changes. No chest discomfort, shortness of breath, palpitation, lightheadedness, bleeding issues. 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 Compliant with her medications. Has follow-up with Dr. Kwong on April 07. [facility] Medical History History of cardioversion PAF (paroxysmal atrial fibrillation) Precordial chest pain Graves disease Hypothyroidism Paroxysmal A-fib Surgical History S/P ablation of atrial fibrillation History of surgery on arm Hx of appendectomy Family History Father CVD (cardiovascular disease) Diabetes Mother HTN (hypertension) Social History Housing: House Alcohol intake: former Patient Tobacco Use Status: Former Tobacco user Years Smoked: 30 +/- e-Cigarette/Vaping Use: Never Used Second Hand Smoke Exposure: No Substance Use Type: Marijuana service: No 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al status: employed 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) Cognitive needs: No Hearing needs: No Vision needs: No Review of Systems Const All systems reviewed & are unremarkable except as noted in HPI and below ENT Denies dizziness Card Denies chest pain, Denies chest pain at rest, Denies chest pain with activity, Denies rapid heart rate, Denies pedal edema, Denies edema, Denies leg edema, Denies lightheadedness, Denies palpitations, Denies dyspnea, Denies dyspnea on exertion and Denies orthopnea Resp Denies cough, Denies dyspnea and Denies dyspnea on exertion GI Denies hematochezia and Denies change in stool character Musc Denies abnormal gait, Denies limited range of motion, Denies muscle cramps, Denies muscle weakness, Denies numbness, Denies radiating pain into limb, Denies stiffness and Denies tingling Neuro Denies abnormal gait, Denies dizziness, Denies numbness and Denies tingling Endo Denies palpitations Physical Exam Vital Signs: Last Vital Signs Pulse 62 03/12/25 08:17 BP 100/62 03/12/25 08:17 BMI result Body Mass Index 25.9 Const General: cooperative, healthy appearing, comfortable and no acute distress Orientation/consciousness: patient oriented x3 Neck Neck: Yes normal visual inspection and Yes no JVD Resp Effort & Inspection: normal respiratory effort Auscultation: clear to auscultation bilaterally, no rales, no rhonchi and no wheezes Cardio Rate: regular rate Rhythm: regular rhythm Heart sounds: S1 normal heart sound present, S2 normal heart sound present, no murmurs and no rubs Neuro General: patient oriented x3 Extrem General: Yes normal to inspection, No no pedal edema and No calf tenderness Psych Appearance: grossly normal Mental Status: mental status grossly normal Speech and movement: Normal speech and movement present Office Procedures EKG Details: Today, read by me, sinus rhythm with sinus arrhythmia, nonspecific ST and T-wave abnormality-(T-wave inversions inferior, V3 through V6 same as prior), rate 62, QTC 412 milliseconds [id number], Complete Assessment & Plan Assessment & Plan (1) PAF (paroxysmal atrial fibrillation): Code(s): I48.0 - Paroxysmal atrial fibrillation Category: Surgical Plan: History of paroxysmal atrial fibrillation, symptomatic with prior cardioversion and ablation 10/27/2021. She did well until September 2025 when she had recurrent persistent atrial fibrillation. She was treated with rate control and underwent repeat ablation 01/15/2025. She had developed some vascular congestion and was put on Lasix. An echocardiogram was done 12/07/2024 showing EF 56%, left atrium mild to moderately dilated, mild MR. EKG done today showing normal sinus rhythm with sinus arrhythmia, T-wave inversions inferior lateral leads, seen on prior EKGs, rate 62. She has follow-up with electrophysiology 04/07/2025. Continue diltiazem, metoprolol for heart rate control. Continue Eliquis for anticoagulation. She is due for labs, reminded of this. Cardiology follow-up 6 months, sooner if needed. (2) S/P ablation of atrial fibrillation: Comment: October 27, 2021, repeat ablation 01/15/2025 Code(s): Z98.890 - Other specified postprocedural states; Z86.79 - Personal history of other diseases of the circulatory system Category: Surgical Plan: As above (3) FANY (obstructive sleep apnea): Code(s): G47.33 - Obstructive sleep apnea (adult) (pediatric) Category: Medical Plan: Mild obstructive sleep apnea. She is not interested in CPAP mask. (4) Abnormal EKG: Code(s): R94.31 - Abnormal electrocardiogram [ECG] [EKG] Category: Medical Plan: Her EKG has inferior and anterior lateral T-wave inversions. EKGs reviewed back to 2020 and unchanged. EKG today shows no significant changes. She has no anginal sounding symptoms. She has had 2 stress tests in the past, last was 04/19/2022, and neither shows any significant perfusion abnormality. If she has report of any chest discomfort or new shortness of breath and plan to get a CTA of the coronary arteries. Signs and symptoms of angina reviewed with her. Plan Time spent on chart review, documentation, interview and assessment Orders: Orders Lipid Panel Today I48.0 - Paroxysmal atrial fibrillation, R94.31 - Abnormal electrocardiogram [ECG] [EKG] Complete Blood Count Auto Diff Today I48.0 - Paroxysmal atrial fibrillation Comprehensive Met. Panel Today I48.0 - Paroxysmal atrial fibrillation TSH reflex Free T4 Today I48.0 - Paroxysmal atrial fibrillation B Type Natriuretic Peptide Today I48.0 - Paroxysmal atrial fibrillation Coding Level of Care Code Est Pt Level 4 (99488) Complex EM visit Add On G2211 Diagnoses PAF (paroxysmal atrial fibrillation) I48.0 S/P ablation of atrial fibrillation Z98.890; Z86.79 FANY (obstructive sleep apnea) G47.33 Abnormal EKG R94.31 CPT Codes EKG - CPT: 58148-[id number], Complete ([id number]) Time Spent (min) 28
== END 2025-03-12 08:45 | disposition home or self-care (01) ==
LOC: HO.HCS 08:10
PROVIDERS: PCP Family Medicine; Visit Provider Nurse Practitioner Family
DX: I48.0 Paroxysmal atrial fibrillation (principal); Z98.890 Other specified postprocedural states; Z86.79 Personal history of other diseases of the circulatory system; G47.33 Obstructive sleep apnea (adult) (pediatric); R94.31 Abnormal electrocardiogram [ECG] [EKG]
CPT/HCPCS: 93010; 99214; G2211

== ENCOUNTER → 2025-03-12 08:09 | Outpatient (BNVA) | payer MEDICARE, SELFPAY | PROVIDERS: PCP Family Medicine; Visit Provider Nurse Practitioner Family | DX: I48.0 Paroxysmal atrial fibrillation (principal); G47.33 Obstructive sleep apnea (adult) (pediatric); R94.31 Abnormal electrocardiogram [ECG] [EKG]; Z98.890 Other specified postprocedural states; Z86.79 Personal history of other diseases of the circulatory system | CPT/HCPCS: 93005; 99212 ==

== ENCOUNTER 2025-07-24 15:19 | Outpatient (REF) | payer MEDICARE, SELFPAY ==
[2025-07-24 15:34] LABS: MANUAL DIFF FLAG NO
[2025-07-24 16:22] LABS: Hematocrit 37.6 % (37.0-47.0); Hemoglobin 13.0 g/dl (12.0-16.0); Imm Gran Abs Auto 0.02 X10*3/uL (0.00-0.03); Imm Gran Pct Auto 0.3 % (0.0-0.4); Lymphocytes Absolute Auto 2.3 X10*3/uL (1.2-4.9); Mean Corpuscular HGB Conc 34.6 g/dl (31.0-35.0); Mean Corpuscular Hemoglobin 33.3 pg (27.0-33.0); Mean Corpuscular Volume 96.4 fL (80.0-98.0); NRBC Abs Auto 0.000 X10*3/uL (0.0-0.012); NRBC Pct Auto 0.0 /100WBC (0.0-0.2); Platelet Count 277 X10*3/uL (160-400); Red Blood Count 3.90 X10*6/uL (4.20-5.50); White Blood Count 7.6 X10*3/uL (4.8-10.8)
[2025-07-24 17:08] LABS: B Type Natriuretic Peptide 431 pg/mL (<100)
[2025-07-24 17:19] LABS: Alanine Aminotransferase 39 U/L (0-31); Albumin Level 4.3 g/dL (3.5-5.0); Alkaline Phosphatase 80 U/L (39-117); Anion Gap 14 (12-20); Aspartate Amino Transferase 25 U/L (5-31); Blood Urea Nitrogen 16 mg/dL (9-16); Calcium 9.1 mg/dL (8.4-10.2); Carbon Dioxide 24 mmol/L (22-29); Chloride 105 mmol/L (96-108); Cholesterol 220 mg/dL (<200); Estimated Glomerular Filt Rate > 60; HDL Cholesterol 91 mg/dL (>40); Potassium 4.1 mmol/L (3.3-5.1); Sodium 139 mmol/L (135-145); Total Protein 7.4 g/dL (6.5-8.0); Triglycerides 228 mg/dL (<150)
[2025-07-24 18:19] LABS: Free T4 (Free Thyroxine) 1.00 ng/dL (0.71-1.85)
--- OUTSIDE RECORDS SUMMARY | 2025-07-24 18:48 | XMS_ITS | Patient Health Record ---
Author Organization [facility] Address [address] [place] [address] Care Team Providers Care Forensic Accountant Name Role Phone Magdaleno Delong Unavailable [phone] Allergies Allergen (clinical drug ingredient) Drug/Non Drug Allergy documented on EMR Reaction Allergy Type Onset Date Status NOVOCAINE rapid heart rate Drug Allergy Active Penicillin extreme joint pain Drug Allergy Active Reason For Referral No Information Medications Medication SIG (Take, Route, Fr equency, Duration) Notes Start Date End Date Status Synthroid 100 MCG Orally Ac tive Medrol 4 MG as directed Orally 05/24/2018 Active Social History Tobacco use other than smoking: Question Answer Notes Are you an other tobacco user? No Problems Problem Type SNOMED Code ICD Code Onset Dates Problem Status W/U Status Risk Notes Problem Tarsal tunnel syndrome (11319016) Tarsal tunnel syndrome, right lower limb (G57.51) Active confirmed Problem Tibialis tendinitis (15384920) Posterior tibial tendinitis, right leg (M76.821) Active confirmed Plan Of Treatment Pending Test Test Name Order Date ,[id number] TENDON SHEATH/LIGAMENT 0 02/08/2017 Medical (General) History Medical History History ICD Code Diverticulosis Thyroid disorder Measles Chicken pox
== END 2025-07-24 15:20 | disposition home or self-care (01) ==
LOC: HO.LAB 15:19
PROVIDERS: Nurse Practitioner Family; PCP Family Medicine; Visit Provider Internal Medicine Endocrinology, Diabetes & Metabolism
DX: Z13.6 Encounter for screening for cardiovascular disorders (principal); R94.31 Abnormal electrocardiogram [ECG] [EKG]; I48.0 Paroxysmal atrial fibrillation
CPT/HCPCS: 36415; 80053; 80061; 83880; 84439; 84443; 85025

== ENCOUNTER 2025-08-14 16:04 | Outpatient (AMB) | payer MEDICARE, SELFPAY ==
[2025-08-14 16:16] VITALS: BP 112/64; PULSE 64; O2SAT 98; BMI 25.5
--- NOTE | 2025-08-14 16:16 | MHC.OFFVIS ---
Vital Signs 08/14/25 16:16 Height 5 ft 3 in Weight 144 lb 2.917 oz BMI 25.5 BP 112/64 Blood Pressure Location Lt brachial Position Sitting Pulse 64 Pulse Source Pulse Oximeter Pulse Oximetry (%) 98 Oxygen Delivery Method Room Air Intake Visit Reasons: f/u hypothyroidism Intake Note: Patient present today for Hypothyroidism follow up. Accompanied by: Self / Same As Patient Allergies Penicillins Allergy (Severe, Verified 03/12/25 08:20) Anaphylaxis Medication List - Last Reconciled 08/14/25 by Hemanth Dean MD apixaban (Eliquis) 5 mg PO BID diltiazem HCl CD 180 mg PO DAILY furosemide 20 mg PO DAILY metoprolol tartrate 50 mg PO BID naltrexone 50 mg PO DAILY Synthroid (levothyroxine) 88 mcg PO .q0d NS Synthroid (levothyroxine) 100 mcg PO .qod NS HPI Comments Details: 70 yo female today for fup visit, , for post ablative hypothyroidism . She is feeling well. Has no complaints. She has past medical history of Graves' disease who underwent radioactive iodine ablation and has resulted in hypothyroidism She is currently on synthroid 88 mg. alt with 100 mcg 100% compliance with LT 4, good method of administration. Feeling some fatigue since decrease the Synthroid 88 Denies cold or heat intolerance, weight loss or gain, Denies diarrhea, constipation, insomnia, fatigue, dry skin, Occasional dysphagia, Denies dyspnea, dysphonia, tremors, palpitations, irritability, anxiety. Family History: Aunt had goiter. Laboratory Tests 01/01/20 09/04/20 Unknown 09:32 TSH 1.27 Free T4 0.94 TSH 3rd Generation 1.02 TSH on 07/24 was elevated patient was not consistent with taking the Synthroid 88 mcg alternating with 100 mcg. Repeat thyroid function studies were due in September. Feeling fine without sx of hypothyroidism or hyperthyroidism PFSH Medical History History of cardioversion Precordial chest pain Graves disease Hypothyroidism Paroxysmal A-fib Surgical History PAF (paroxysmal atrial fibrillation) S/P ablation of atrial fibrillation History of surgery on arm Hx of appendectomy Family History Father CVD (cardiovascular disease) Diabetes Mother HTN (hypertension) Social History Housing: House Alcohol intake: former Patient Tobacco Use Status: Former Tobacco user Years Smoked: 30 +/- e-Cigarette/Vaping Use: Never Used Second Hand Smoke Exposure: No Substance Use Type: Marijuana service: No 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al status: employed 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) Cognitive needs: No Hearing needs: No Vision needs: No Physical Exam Vital Signs: Last Vital Signs Pulse 64 08/14/25 16:16 BP 112/64 08/14/25 16:16 Pulse Ox 98 08/14/25 16:16 Oxygen Delivery Method Room Air 08/14/25 16:16 BMI result Body Mass Index 25.5 Assessment & Plan Assessment & Plan (1) Hypothyroidism: Code(s): E03.9 - Hypothyroidism, unspecified Category: Medical Qualifiers: Hypothyroidism type: postablative Qualified Code(s): E89.0 - Postprocedural hypothyroidism Plan: This is a 68-year-old white female with a history of post-ablated hypothyroidism be treated with 88 mcg alt with 100 ug Synthroid. She appears to be clinically euthyroid Plan is to check TSH and free T4 09/2025 and adjust Synthroid if necessary Coding Level of Care Code Est Pt Level 3 (28911) Diagnoses Postablative hypothyroidism E89.0 Hypothyroidism type: postablative
== END 2025-08-14 16:38 | disposition home or self-care (01) ==
LOC: HO.ENCR 16:06
PROVIDERS: PCP Family Medicine; Visit Provider Internal Medicine Endocrinology, Diabetes & Metabolism
DX: E89.0 Postprocedural hypothyroidism (principal)
CPT/HCPCS: 99213

== ENCOUNTER → 2025-08-14 16:04 | Outpatient (BNVA) | payer MEDICARE, SELFPAY | PROVIDERS: PCP Family Medicine; Visit Provider Internal Medicine Endocrinology, Diabetes & Metabolism | DX: E89.0 Postprocedural hypothyroidism (principal); Z86.39 Personal history of other endocrine, nutritional and metabolic disease; Z87.891 Personal history of nicotine dependence; Z79.890 Hormone replacement therapy | CPT/HCPCS: 99212 ==

== ENCOUNTER 2025-09-12 08:27 | Outpatient (AMB) | payer MEDICARE, SELFPAY ==
--- NOTE | 2025-09-12 08:37 | A.OFFVIS_ITS ---
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 Required: No Allergies Penicillins Allergy (Severe, Verified 09/12/25 08:40) Anaphylaxis Medication List - Last Reconciled 09/12/25 by Nerissa Williamson NP-C apixaban (Eliquis) 5 mg PO BID diltiazem HCl CD 180 mg PO DAILY furosemide 20 mg PO DAILY metoprolol tartrate 50 mg PO BID Synthroid (levothyroxine) 88 mcg PO .q0d NS Synthroid (levothyroxine) 100 mcg PO .qod NS HPI HPI 6 mth f/up: Details: Barbara is a 70 yo female with PMH of mild FANY no CPAP use, abnormal EKG with chronic T wave inversion inferolateral leads, Persistent AF with prior cardioversion then ablation 10/2021, recurrent AF 09/2024 treated with rate control then underwent repeat ablation 01/15/2025. She now presents for follow up. Today she reports that she has been noticing heart palpitations at times during the night. She feels her heart beating mildly irregular and has recorded her pulse at 90. She is not noticing any concerning symptoms during the day. She has had an intermittent cough and nasal congestion recently. Her breathing overall did improve after the start of Lasix. No chest discomfort, lightheadedness, bleeding issues. 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 She drinks decaffeinated tea with honey each night which is her norm. She recently changed the honey brand and feels that may be adding to her heart palpitations. She has 3 areas of skin cancer on her face and needs to have procedure to have them removed. Compliant with all medications. [facility] Medical History History of cardioversion Precordial chest pain Graves disease Hypothyroidism Paroxysmal A-fib Surgical History PAF (paroxysmal atrial fibrillation) S/P ablation of atrial fibrillation History of surgery on arm Hx of appendectomy Family History Father CVD (cardiovascular disease) Diabetes Mother HTN (hypertension) Social History Housing: House Alcohol intake: former Patient Tobacco Use Status: Former Tobacco user Years Smoked: 30 +/- e-Cigarette/Vaping Use: Never Used Second Hand Smoke Exposure: No Substance Use Type: Marijuana service: No 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al status: employed 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) Cognitive needs: No Hearing needs: No Vision needs: No Review of Systems Const All systems reviewed & are unremarkable except as noted in HPI and below ENT Denies dizziness Card Details: palpitations at night Denies chest pain, Denies chest pain at rest, Denies chest pain with activity, Denies rapid heart rate, Denies pedal edema, Denies edema, Denies leg edema, Denies lightheadedness, Denies palpitations, Denies dyspnea, Denies dyspnea on exertion and Denies orthopnea Resp Details: intermittent cough and nasal congestion Denies cough, Denies dyspnea and Denies dyspnea on exertion GI Denies hematochezia and Denies change in stool character Musc Denies abnormal gait, Reports limited range of motion, Denies muscle cramps, Denies muscle weakness, Denies numbness, Denies radiating pain into limb, Denies stiffness and Denies tingling Neuro Denies abnormal gait, Denies dizziness, Denies numbness and Denies tingling Endo Denies palpitations Physical Exam Vital Signs: Last Vital Signs Pulse 68 09/12/25 08:38 BP 100/62 09/12/25 08:38 BMI result Body Mass Index 25.3 Const General: cooperative, healthy appearing, comfortable and no acute distress Orientation/consciousness: patient oriented x3 Neck Neck: Yes normal visual inspection and Yes no JVD Resp Effort & Inspection: normal respiratory effort Auscultation: clear to auscultation bilaterally, no rales, no rhonchi and no wheezes Cardio Rate: regular rate Rhythm: regular rhythm Heart sounds: S1 normal heart sound present, S2 normal heart sound present, no murmurs and no rubs Neuro General: patient oriented x3 Extrem General: Yes normal to inspection, No no pedal edema and No calf tenderness Psych Appearance: grossly normal Mental Status: mental status grossly normal Speech and movement: Normal speech and movement present Office Procedures EKG Details: Today, read by me sinus rhythm with PACs, T-wave abnormality inferior lateral leads, rate 68, QTC 427ms [id number], Complete Assessment & Plan Assessment & Plan (1) PAF (paroxysmal atrial fibrillation): Code(s): I48.0 - Paroxysmal atrial fibrillation Category: Surgical Plan: History of paroxysmal atrial fibrillation, Symptomatic, treated with cardioversion then ablation 10/27/2021. She did well until September 2024 when she had recurrent persistent atrial fibrillation. She was treated with rate control and underwent repeat ablation 01/15/2025. She had developed some vascular congestion and was put on Lasix. An echocardiogram was done 12/07/2024 showing EF 56%, left atrium mild to moderately dilated, mild MR. EKG done today showing normal sinus rhythm with to PACs, T-wave inversions inferior lateral leads, seen on prior EKGs, rate 68. She has felt some nighttime palpitations and will cut out adding honey to her tea in the evening. Continue diltiazem, metoprolol for heart rate control. Continue Eliquis for anticoagulation. Can hold Eliquis for 48 hr prior to upcoming skin cancer procedure. Notify this office if you are having increasing heart palpitations and Holter monitor will be ordered. Cardiology follow-up 6 months, sooner if needed. (2) S/P ablation of atrial fibrillation: Comment: October 27, 2021, repeat ablation 01/15/2025 Code(s): Z98.890 - Other specified postprocedural states; Z86.79 - Personal history of other diseases of the circulatory system Category: Surgical Plan: As above (3) FANY (obstructive sleep apnea): Code(s): G47.33 - Obstructive sleep apnea (adult) (pediatric) Category: Medical Plan: Mild obstructive sleep apnea. She is not interested in CPAP mask. (4) Abnormal EKG: Code(s): R94.31 - Abnormal electrocardiogram [ECG] [EKG] Category: Medical Plan: Her EKG has inferior and anterior lateral T-wave inversions. EKGs reviewed back to 2020 and unchanged. EKG today shows no significant changes. She has no anginal sounding symptoms. She has had 2 stress tests in the past, last was 04/19/2022, and neither shows any significant perfusion abnormality. If she has report of any chest discomfort or new shortness of breath and plan to get a CTA of the coronary arteries. Signs and symptoms of angina reviewed with her. Plan I discussed with the patient the potential link between her heart palpitations symptoms and the consumption of herbal tea with honey. We agreed to discontinue the tea/honey to see if symptoms improve. I advised the patient to monitor her symptoms and contact us if atrial fibrillation persists, at which point we may consider cardiac monitoring. Patient Instructions: - Stop drinking herbal tea with honey at night to see if it reduces palpitation symptoms. - Monitor for atrial fibrillation symptoms and contact the clinic if they occur - Hold Eliquis 48 hours before the scheduled procedure for basal cell carcinoma. Patient was informed and verbally consented to the use of an ambient scribe for clinic note documentation during this visit. Visit time spent on chart review, interview, assessment, orders, documentation. Coding Level of Care Code Est Pt Level 4 (66487) Complex EM visit Add On G2211 Diagnoses PAF (paroxysmal atrial fibrillation) I48.0 S/P ablation of atrial fibrillation Z98.890; Z86.79 FANY (obstructive sleep apnea) G47.33 Abnormal EKG R94.31 CPT Codes EKG - CPT: 62892-Tkyjoncfbfoadldbx, Complete ([id number]) Time Spent (min) 28
[2025-09-12 08:38] VITALS: BP 100/62; PULSE 68; BMI 25.3
--- OUTSIDE RECORDS SUMMARY | 2025-09-12 08:53 | XMS_ITS | Patient Health Record ---
Author Organization [facility] Address [address] [place] [address] Care Team Providers Care Campaign Developer Name Role Phone Magdaleno Delong Unavailable [phone] Allergies Allergen (clinical drug ingredient) Drug/Non Drug [...] Status Risk Notes Problem Tarsal tunnel syndrome (41914465) Tarsal tunnel syndrome, right lower limb (G57.51) Active confirmed Problem Tibialis tendinitis (98109913) Posterior tibial tendinitis, right leg (M76.821) Active confirmed Plan Of Treatment Pending Test Test Name Order Date ,[id number] TENDON SHEATH/LIGAMENT 0 02/08/2017 Medical (General) History Medical History History ICD Code Diverticulosis Thyroid disorder Measles Chicken pox
== END 2025-09-12 09:16 | disposition home or self-care (01) ==
LOC: HO.HCS 08:28
PROVIDERS: PCP Family Medicine; Visit Provider Nurse Practitioner Family
DX: I48.0 Paroxysmal atrial fibrillation (principal); Z98.890 Other specified postprocedural states; Z86.79 Personal history of other diseases of the circulatory system; G47.33 Obstructive sleep apnea (adult) (pediatric); R94.31 Abnormal electrocardiogram [ECG] [EKG]
CPT/HCPCS: 93010; 99214; G2211

== ENCOUNTER → 2025-09-12 08:27 | Outpatient (BNVA) | payer MEDICARE, SELFPAY | PROVIDERS: PCP Family Medicine; Visit Provider Nurse Practitioner Family | DX: I48.0 Paroxysmal atrial fibrillation (principal); G47.33 Obstructive sleep apnea (adult) (pediatric); R94.31 Abnormal electrocardiogram [ECG] [EKG]; E03.9 Hypothyroidism, unspecified; Z86.79 Personal history of other diseases of the circulatory system; Z98.890 Other specified postprocedural states; Z79.01 Long term (current) use of anticoagulants; Z79.890 Hormone replacement therapy | CPT/HCPCS: 93005; 99212 ==